=== PATIENT | male | born 1965 ===

== ENCOUNTER 2016-08-31 08:59 | Inpatient (IN) | payer BC, MEDICAID, OTHER ==
[2016-08-31 08:59] VITALS: BMI 33.3
[2016-08-31 10:07] LABS: EOS # 0.1 K/uL (0.0-0.7); EOS % 1.9 % (0.0-4.0); HEMATOCRIT 45.6 % (35.0-51.0); LYMPH # 1.2 K/uL (1.0-4.3); LYMPH % 23.9 % (20.0-40.0); MEAN CELL VOLUME 88.9 fL (80.0-94.0); MEAN CORPUSCULAR HGB CONC 33.8 g/dL (33.0-37.0); MEAN PLATELET VOLUME 8.6 fL (7.2-11.7); MONO # 0.5 K/uL (0.0-0.8); MONO % 10.4 % (0.0-10.0); RED CELL DISTRIBUTION WIDTH 13.7 % (11.5-14.5); WHITE BLOOD COUNT 4.8 K/uL (4.8-10.8)
[2016-08-31 10:12] LABS: CHLORIDE 101 mmol/L (98-107); SODIUM 137 mmol/L (132-148)
[2016-08-31 10:13] LABS: POTASSIUM 3.6 mmol/L (3.6-5.2)
[2016-08-31 10:14] LABS: GFR AFRICAN-AMERICAN > 60
[2016-08-31 10:15] LABS: ALB/GLOB RATIO 1.5 (1.0-2.1); ALKALINE PHOSPHATASE 82 U/L (38-126); ALT/SGPT 47 U/L (21-72); AST/SGOT 35 U/L (17-59); BILIRUBIN,TOTAL 0.6 mg/dL (0.2-1.3); BLOOD UREA NITROGEN 14 mg/dL (9-20); CALCIUM 9.3 mg/dl (8.6-10.4); CARBON DIOXIDE 27 mmol/L (22-30); GLUCOSE,RANDOM 118 mg/dL (75-110); TOTAL PROTEIN 7.9 g/dL (6.3-8.3)
[2016-08-31 10:16] LABS: ALCOHOL SERUM < 10 mg/dl (0-10)
[2016-08-31 10:26] LABS: RBC URINE 2 /hpf (0-3); URINE BILIRUBIN NEGATIVE (NEGATIVE); URINE BLOOD NEGATIVE (NEGATIVE); URINE COLOR Yellow (YELLOW); URINE GLUCOSE (UA) NORMAL (Normal); URINE KETONE TRACE mg/dL (NEGATIVE); URINE LEUKOCYTE ESTERASE NEG Leu/uL (Negative); URINE PROTEIN 1+ mg/dL (NEGATIVE); URINE UROBILINOGEN NORMAL mg/dL (0.2-1.0); WBC URINE 2 /hpf (0-5)
--- NOTE | 2016-08-31 11:55 | C.PDOC ---
History Of Present Illness 51 yr old with PMHx of depression with no follow up, presents to the ER stating for the past several days he has been feeling increasingly depressed with suicidal thoughts, but no plan in mind. Patient denies hallucinations, drug use , nausea, vomiting, headache, weakness or numbness. Time Seen by Provider: 08/31/16 09:37 Chief Complaint (Nursing): Psychiatric Evaluation History Per: Patient History/Exam Limitations: no limitations Onset/Duration Of Symptoms: Worse Since (Several days ) Past Medical History Reviewed: Historical Data, Nursing Documentation, Vital Signs Vital Signs: Last Vital Signs Temp 98.2 F 08/31/16 12:18 Pulse 66 08/31/16 16:06 Resp 16 08/31/16 13:00 BP 119/71 08/31/16 16:06 Pulse Ox 95 08/31/16 12:18 - Medical History PMH: Anxiety, Asthma, Bronchitis, COPD, Depression, Gastritis - [facility] Procedures APPLICATION OF SPLINT (07/21/14) INJECT/INFUSE NEC (09/26/13) NEBULIZER THERAPY (08/05/14) Family History: States: Diabetes - Social History Hx Alcohol Use: No Hx Substance Use: Yes (cocaine) - Immunization History Hx Tetanus Toxoid Vaccination: No Hx Influenza Vaccination: No Hx Pneumococcal Vaccination: No Review Of Systems Except As Marked, All Systems Reviewed And Found Negative. Gastrointestinal: Negative for: Nausea, Vomiting Neurological: Negative for: Weakness, Numbness, Headache Psych: Positive for: Depression, Suicidal ideation Physical Exam - Physical Exam Appears: Well, Non-toxic, No Acute Distress Skin: Warm, Dry, No Rash Head: Atraumatic, Normacephalic Eye(s): bilateral: Normal Inspection, PERRL, EOMI Chest: Symmetrical, No Tenderness Cardiovascular: Rhythm Regular, No Murmur Respiratory: Normal Breath Sounds, No Rales, No Rhonchi, No Wheezing Extremity: Normal ROM, No Swelling Neurological/Psych: Oriented x3, Normal Speech, Normal Motor ED Course And Treatment - Laboratory Results Result Diagrams: 08/31/16 09:56 08/31/16 09:56 O2 Sat by Pulse Oximetry: 100 Progress Note: Patient was seen and evaluated by the Crisis member. Patient is medically cleared. Medical Decision Making Medical Decision Making: PLAN: * Alcohol Serum * Drug Screen * CBC * Urinalysis * Admit to hospital Disposition - Disposition Disposition: HOSPITALIZED Disposition Time: 11:56 Condition: STABLE - Clinical Impression Clinical Impression: Depression - PA / RECRUITMENT DIRECTOR / Resident Statement MD/DO has reviewed & agrees with the documentation as recorded. - Scribe Statement The provider has reviewed the documentation as recorded by the Scribe Afua Colmenares All medical record entries made by the Scribe were at my direction and personally dictated by me. I have reviewed the chart and agree that the record accurately reflects my personal performance of the history, physical exam, medical decision making, and the department course for this patient. I have also personally directed, reviewed, and agree with the discharge instructions and disposition.
--- NOTE | 2016-08-31 11:56 | C.PDOC ---
Time Seen by Provider: 08/31/16 09:37 Chief Complaint (Nursing): Psychiatric Evaluation Past Medical History Vital Signs: Last Vital Signs Temp 98.2 F 08/31/16 10:53 Pulse 71 08/31/16 10:53 Resp 17 08/31/16 10:53 BP 136/83 08/31/16 10:53 Pulse Ox 100 08/31/16 10:53 - Medical History PMH: Anxiety, Asthma, Bronchitis, COPD, Depression, Gastritis Denies: Diabetes, Hepatitis, HIV, HTN, Chronic Kidney Disease, Seizures, Sexually Transmitted Disease - [facility] Procedures APPLICATION OF SPLINT (07/21/14) INJECT/INFUSE NEC (09/26/13) NEBULIZER THERAPY (08/05/14) Family History: States: Diabetes - Social History Hx Alcohol Use: No Hx Substance Use: Yes (cocaine) - Immunization History Hx Tetanus Toxoid Vaccination: No Hx Influenza Vaccination: No Hx Pneumococcal Vaccination: No ED Course And Treatment - Laboratory Results Result Diagrams: 08/31/16 09:56 08/31/16 09:56 O2 Sat by Pulse Oximetry: 100 Disposition - Disposition Disposition: HOSPITALIZED Disposition Time: 11:56 Condition: STABLE - Clinical Impression Clinical Impression: Depression
--- NOTE | 2016-08-31 12:57 | PCM.PSYCH ---
Initial Psychiatric Evaluation - Initial Psychiatric Evaluation Type of Admission: Voluntary Legal Status: Capacity Chief Complaint (in patient's own words): I'm feeling suicidal History of Present Illness and Precipitating Events: Patient was seen and evaluated, chart reviewed and discussed with the nurse. The patient is a 51yo male who presents with depression. 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 He states that he has attempted suicide once by overdosing on sleeping pills. He denies having a psychiatrist and has been hospitalized for psych about 7 times in the past. He states that the last time he was hospitalized he was given Lexapro and continued to take it for about 1 week after discharge. He says that he has difficulty sleeping at night, doesn't eat much, and has lost interest in daily activities. He says that he started using cocaine when he was 28yo and snorted 2-3 bags every other week. He says that he last used cocaine couple of days ago. He has a history of heavy drinking in the past but today remained guarded about the usage and details. He denies ever having been to detox but states that he went to the [facility] in 2000. He denies the use of heroin, marijuana or tobacco. He denies auditory or visual hallucinations. The patient appears to be tired with a depressed mood but is kempt. He reports feelings of hopelessness and helplessness. He is isolated and withdrawn and confined to his room. PMH Asthma, Allergic to seafood and shellfish. Past Psychiatric History - Past Psychiatric History Previous Treatment History: Inpatient Pertinent Medical Hx (Current Medical&Sleep Prob, Allergies): Allergies Allergy/AdvReac Type Severity Reaction Status Date / Time FISH Allergy ANAPHYLAXIS Verified 08/15/16 01:11 Fish Containing Products Allergy ANAPHYLAXIS Verified 08/15/16 01:11 shellfish derived Allergy ANAPHYLAXIS Verified 08/15/16 01:11 seafood Allergy ANAPHYLAXIS Uncoded 08/15/16 05:41 Albuterol HFA [Ventolin HFA 90 mcg/actuation (8 g)] 1 puff IH QID PRN #60 inhaler 08/27/16 predniSONE [Prednisone] 20 mg PO DAILY 4 Days 08/27/16 Review of Systems - Review of Systems All systems: reviewed and no additional remarkable complaints except - Psychiatric Psychiatric: Anhedonia, Change in Appetite, Depression, Suicidal Ideation. absent: Anxiety, Auditory Hallucinations, Homicidal Ideation Mental Status Examination - Personal Presentation Personal Presentation: Looks stated age - Affect Affect: Constricted, Depressed - Motor Activity Motor Activity: Psychomotor Agitation - Reliability in Providing Information Reliability in Providing Information: Fair - Speech Speech: Organized - Mood Mood: Depressed, Anxious - Formal Thought Process Formal Thought Process: No Impairment - Obsessions/Compulsions Obsessions: No Compulsions: No - Cognitive Functions Orientation: Person, Place, Situation, Time Sensorium: Alert Attention/Concentration: Attentive Abstract Thinking: [place] Estimate of Intelligence: Below average Judgement: Imparied, as evidence by: Poor judgement, Imparied, as evidence by: Lack of insight into illness - Risk Risk: Suicidal, Diminished functioning - Limitations Limitations: Living alone DSM 5 DX - DSM 5 DSM 5 Diagnosis: Major depressive disorder recurrent severe without psychotic features Cocaine use disorder severe Alcohol use disorder severe - Recommended/Plan of Treatment Treatment Recommendations and Plan of Treatment: Major depressive disorder recurrent severe without psychotic features CBT Psychoeducation Supportive therapy, group therapy, individual therapy Neurontin 100 mg by mouth 3 times a day Trazodone 50 mg by mouth daily at bedtime Cocaine use disorder severe CBT Psychoeducation Supportive therapy, individual therapy Use [place] for abstinence Alcohol use disorder severe CBT Psychoeducation Supportive therapy, individual therapy Use [place] for abstinence Asthma Monitor signs and symptoms - Smoking Cessation Smoking Cessation Initiated: No
--- NOTE | 2016-09-01 15:00 | PCM.PYCHPN ---
Psychiatric Progress Note - Psychiatric Progress Note Patient seen today, length of contact: 17 min Patient Chief Complaint: I'm feeling suicidal Medication Change: Yes (start Paxil) Medical Record Reviewed: Yes Mental Status Examination - Cognitive Function Orientation: Person, Place, Situation, Time - Mood Mood: Depressed, Anxious - Affect Affect: Constricted, Depressed - Formal Thought Process Formal Thought Process: No Impairment - Homicidal Ideation Homicidal Ideation: No Goal/Treatment Plan - Goal/Treatment Plan Progress Toward Problem(s) and Goals/Treatment Plan: Major depressive disorder recurrent severe without psychotic features CBT Psychoeducation Supportive therapy, group therapy, individual therapy Neurontin 100 mg by mouth 3 times a day Trazodone 50 mg by mouth daily at bedtime Cocaine use disorder severe CBT Psychoeducation Supportive therapy, individual therapy Use [place] for abstinence Alcohol use disorder severe CBT Psychoeducation Supportive therapy, individual therapy Use [place] for abstinence Asthma Monitor signs and symptoms
[2016-09-01] MEDS: Albuterol HFA 90 mcg/actuation (8 g) INH PRN ×2 (18:08→21:25)
[2016-09-02] MEDS: Albuterol HFA 90 mcg/actuation (8 g) INH PRN ×3 (06:06→14:07)
--- NOTE | 2016-09-02 10:12 | PCM.PYCHPN ---
Psychiatric Progress Note - Psychiatric Progress Note Patient seen today, length of contact: 17 min Patient Chief Complaint: I'm feeling suicidal Medication Change: Yes (increase gabapentin, consult medicine ) Medical Record Reviewed: Yes Mental Status Examination - Cognitive Function Orientation: Person, Place, Situation, Time - Mood Mood: Depressed, Anxious - Affect Affect: Constricted, Depressed - Formal Thought Process Formal Thought Process: No Impairment - Homicidal Ideation Homicidal Ideation: No Goal/Treatment Plan - Goal/Treatment Plan Progress Toward Problem(s) and Goals/Treatment Plan: Major depressive disorder recurrent severe without psychotic features CBT Psychoeducation Supportive therapy, group therapy, individual therapy Neurontin 100 mg by mouth 3 times a day Trazodone 50 mg by mouth daily at bedtime Cocaine use disorder severe CBT Psychoeducation Supportive therapy, individual therapy Use [place] for abstinence Alcohol use disorder severe CBT Psychoeducation Supportive therapy, individual therapy Use [place] for abstinence Asthma Monitor signs and symptoms
--- NOTE | 2016-09-02 13:46 | CP.PCM.CON ---
<Alfonso Jimenez - Last Filed: 09/02/16 19:42> History of Present Illness - History of Present Illness History of Present Illness: CC: Short of breath HPI: Patient is a 51 year old male with a history of asthma and COPD, cocaine use disorder, depression, and etoh abuse as well. He says that he has been having productive cough for the past few days and also some chest tightness as well as chills last night. A consult was for the asthma and also possible pnuemonia. He says that he has been hospitalized for asthma exerbation but has never been intubated or in ICU because of it. He currently denies fevers, fatigue, loss of appetite, nausea, vomiting, diarrhea, constipation, joint pain, or inflammation. PMH: see above PSH: denies FH: COPD mom's side and dad's side SH: Homless, smokes every other day 1-2 cigarettes, history of etoh abuse, cocaine abuse Review of Systems - Review of Systems All systems: reviewed and no additional remarkable complaints except - Constitutional Constitutional: Chills. absent: Fatigue, Fever, Lethargy, Night Sweats - EENT Eyes: absent: Change in Vision Ears: absent: Dizziness Nose/Mouth/Throat: absent: Nasal Trauma, Post Nasal Drip - Cardiovascular Cardiovascular: absent: Chest Pain, Dyspnea - Respiratory Respiratory: Cough, Wheezing. absent: Dyspnea - Gastrointestinal Gastrointestinal: absent: Abdominal Pain, Diarrhea, Nausea, Vomiting - Musculoskeletal Musculoskeletal: absent: Numbness, Tingling - Integumentary Integumentary: Dry Skin, Pruritus (feet) - Neurological Neurological: absent: Disequilibrium, Numbness, Tingling, Weakness - Endocrine Endocrine: absent: Fatigue, Palpitations Past Patient History - Infectious Disease Hx of Infectious Diseases: None - Past Medical History & Family History Past Medical History?: Yes - Past Social History Smoking Status: Current Some Days Smoker - CARDIAC Hx Hypertension: No - PULMONARY Hx Asthma: Yes Hx Bronchitis: Yes Hx Chronic Obstructive Pulmonary Disease (COPD): Yes - NEUROLOGICAL Hx Seizures: No - HEENT Hx HEENT Problems: No - RENAL Hx Chronic Kidney Disease: No - ENDOCRINE/METABOLIC Hx Endocrine Disorders: No - HEMATOLOGICAL/ONCOLOGICAL Hx Human Immunodeficiency Virus (HIV): No - INTEGUMENTARY Hx Dermatological Problems: No - MUSCULOSKELETAL/RHEUMATOLOGICAL Hx Musculoskeletal Disorders: No Hx Falls: No - GASTROINTESTINAL Hx Gastritis: Yes - GENITOURINARY/GYNECOLOGICAL Hx Sexually Transmitted Disorders: No - PSYCHIATRIC Hx Substance Use: Yes - SURGICAL HISTORY Hx Surgeries: No - ANESTHESIA Hx Anesthesia: No Meds Allergies/Adverse Reactions: Allergies Allergy/AdvReac Type Severity Reaction Status Date / Time FISH Allergy ANAPHYLAXIS Verified 08/15/16 01:11 Fish Containing Products Allergy ANAPHYLAXIS Verified 08/15/16 01:11 shellfish derived Allergy ANAPHYLAXIS Verified 08/15/16 01:11 seafood Allergy ANAPHYLAXIS Uncoded 08/15/16 05:41 - Medications Medications: Current Medications Albuterol (Ventolin Hfa 90 Mcg/Actuation (8 G)) 1 puff INH RQ4 PRN PRN Reason: Shortness of Breath Last Admin: 09/02/16 09:32 Dose: 1 puff Benztropine Mesylate (Cogentin) 2 mg PO Q6 PRN PRN Reason: Extra Pyramidal Symptoms Dicyclomine HCl (Bentyl) 10 mg PO Q6 PRN PRN Reason: Muscle spasm Diphenhydramine HCl (Benadryl) 50 mg PO Q6 PRN PRN Reason: Extra Pyramidal Symptoms Gabapentin (Neurontin) 300 mg PO TID [facility] Haloperidol (Haldol) 5 mg PO Q8 PRN PRN Reason: Moderate Agitation Haloperidol Lactate (Haldol) 5 mg IM Q8 PRN PRN Reason: Moderate Agitation Hydroxyzine HCl (Atarax) 25 mg PO Q6 PRN PRN Reason: Anxiety Paroxetine HCl (Paxil) 10 mg PO [facility] Last Admin: 09/02/16 09:30 Dose: 10 mg Pneumococcal Polyvalent Vaccine (Pneumovax 23 Vaccine) 0.5 ml IM .ONCE ONE Stop: 09/03/16 10:01 Trazodone HCl (Desyrel) 50 mg PO [facility] Last Admin: 09/01/16 21:25 Dose: 50 mg Physical Exam - Constitutional Appears: Non-toxic, No Acute Distress - Head Exam Head Exam: NORMAL INSPECTION - Eye Exam Eye Exam: Normal appearance, PERRL Pupil Exam: NORMAL ACCOMODATION - ENT Exam ENT Exam: Normal Exam - Respiratory Exam Respiratory Exam: Rhonchi, Wheezes. absent: Rales - Cardiovascular Exam Cardiovascular Exam: REGULAR RHYTHM, RRR, +S1, +S2. absent: Gallop, Rubs - GI/Abdominal Exam GI & Abdominal Exam: Normal Bowel Sounds, Soft. absent: Guarding, Rebound, Tenderness - Extremities Exam Extremities exam: Positive for: normal inspection. Negative for: calf tenderness, pedal edema - Back Exam Back exam: NORMAL INSPECTION. absent: CVA tenderness (L), CVA tenderness (R) - Neurological Exam Neurological exam: Oriented x3 - Psychiatric Exam Psychiatric exam: Normal Affect, Normal Mood - Skin Skin Exam: Intact, Normal Color, Warm Results - Vital Signs Recent Vital Signs: Last Vital Signs Temp 97.5 F L 09/02/16 07:07 Pulse 64 09/02/16 07:07 Resp 18 09/02/16 07:07 BP 133/81 09/02/16 07:07 Pulse Ox 98 09/02/16 07:07 - Labs Result Diagrams: 09/02/16 17:17 09/02/16 17:17 Assessment & Plan (1) Asthma Assessment and Plan: consulted for asthma/COPD He is wheezing with some mild rhonci in all lung lindo Start Duonebs for the next few days, CXR PA and Later, follow up labs cbc cmp, mag, phos for today and tomorrow. Most likely patient does not need transfer to the medical floors, patient is afebrile. Will consider transfer if patient becomes febrile or CXR shows evidence for pneumonia. Duonebs Q6H scheduled Duonebs Q2H PRN for wheezing Status: Acute (2) COPD (chronic obstructive pulmonary disease) Assessment and Plan: see note on Asthma, patient may need further outpatient work up and treatment Status: Chronic Priority: Medium (3) Depression Assessment and Plan: Managment per Psych team. Status: Acute (4) Alcohol abuse Status: Acute (5) Cocaine abuse Status: Chronic Priority: High (6) Prophylactic measure Assessment and Plan: Not indicated at this time. Status: Acute <Marko Sanchez - Last Filed: 09/02/16 22:26> Meds - Medications Medications: Current Medications Albuterol (Ventolin Hfa 90 Mcg/Actuation (8 G)) 1 puff INH RQ4 PRN PRN Reason: Shortness of Breath Last Admin: 09/02/16 14:07 Dose: 1 puff Albuterol/Ipratropium (Duoneb 3 Mg/0.5 Mg (3 Ml) Ud) 3 ml INH RQ6 RADHA Last Admin: 09/02/16 21:08 Dose: Not Given Albuterol/Ipratropium (Duoneb 3 Mg/0.5 Mg (3 Ml) Ud) 3 ml INH RQ2 PRN PRN Reason: Wheezing Benztropine Mesylate (Cogentin) 2 mg PO Q6 PRN PRN Reason: Extra Pyramidal Symptoms Dicyclomine HCl (Bentyl) 10 mg PO Q6 PRN PRN Reason: Muscle spasm Diphenhydramine HCl (Benadryl) 50 mg PO Q6 PRN PRN Reason: Extra Pyramidal Symptoms Gabapentin (Neurontin) 300 mg PO TID [facility] Last Admin: 09/02/16 21:08 Dose: Not Given Haloperidol (Haldol) 5 mg PO Q8 PRN PRN Reason: Moderate Agitation Haloperidol Lactate (Haldol) 5 mg IM Q8 PRN PRN Reason: Moderate Agitation Hydroxyzine HCl (Atarax) 25 mg PO Q6 PRN PRN Reason: Anxiety Paroxetine HCl (Paxil) 10 mg PO QAM [facility] Last Admin: 09/02/16 09:30 Dose: 10 mg Pneumococcal Polyvalent Vaccine (Pneumovax 23 Vaccine) 0.5 ml IM .ONCE ONE Stop: 09/03/16 10:01 Trazodone HCl (Desyrel) 50 mg PO HS [facility] Last Admin: 09/02/16 21:09 Dose: Not Given Vitamin A (Vitamin A & D Oint Ud Foilpak) 0.5 ea TOP Q4 [facility] Last Admin: 09/02/16 21:08 Dose: Not Given Results - Vital Signs Recent Vital Signs: Last Vital Signs Temp 97.5 F L 09/02/16 07:07 Pulse 82 09/02/16 17:24 Resp 18 09/02/16 07:07 BP 113/79 09/02/16 17:24 Pulse Ox 98 09/02/16 07:07 - Labs Result Diagrams: 09/02/16 17:17 09/02/16 17:17 Labs: Laboratory Results - last 24 hr 09/02/16 09/02/16 17:17 17:17 WBC 3.7 L RBC 4.56 Hgb 14.1 Hct 40.8 MCV 89.4 MCH 31.0 MCHC 34.6 RDW 13.2 Plt Count 246 MPV 9.0 Neut % (Auto) 49.5 L Lymph % (Auto) 34.0 Villalba % (Auto) 11.1 H Eos % (Auto) 4.4 H Baso % (Auto) 1.0 Neut # 1.8 Lymph # 1.3 [place] # 0.4 Eos # 0.2 Baso # 0.0 Sodium 135 Potassium 3.7 Chloride 95 L Carbon Dioxide 31 H Anion Gap 13 BUN 16 Creatinine 0.9 Est GFR ( Amer) > 60 Est GFR (Non-Af Amer) > 60 Random Glucose 222 H Calcium 8.9 Total Bilirubin 0.4 AST 24 ALT 41 Alkaline Phosphatase 84 Total Protein 6.4 Albumin 3.6 Globulin 2.8 Albumin/Globulin Ratio 1.3 Assessment & Plan - Date & Time Date: 09/02/16 (i saw and examined this patient and agree with the above assessment and plan as outlined. #. Asthmatic crisis r/o Pneumonia. - Duoneb Q6H scheduled and Q2H PRN SOB. follow CXR, CBC and procalcitonin. zno Antibiotic at present. Marko Sanchez MD) Time: 13:46
[2016-09-02] MEDS ORDERED: Albuterol-Ipratrop 3 mg / 0.5 (3 ml) UD INH STA (15:49)
[2016-09-02] MEDS ORDERED: Albuterol-Ipratrop 3 mg / 0.5 (3 ml) UD INH PRN (15:58)
[2016-09-02 17:47] LABS: EOS # 0.2 K/uL (0.0-0.7); EOS % 4.4 % (0.0-4.0); HEMATOCRIT 40.8 % (35.0-51.0); LYMPH # 1.3 K/uL (1.0-4.3); MEAN CELL VOLUME 89.4 fL (80.0-94.0); MEAN CORPUSCULAR HGB CONC 34.6 g/dL (33.0-37.0); MONO # 0.4 K/uL (0.0-0.8); MONO % 11.1 % (0.0-10.0); NRBC % 0.2 % (0.0-2.0); RED CELL DISTRIBUTION WIDTH 13.2 % (11.5-14.5); WHITE BLOOD COUNT 3.7 K/uL (4.8-10.8)
[2016-09-02 17:54] LABS: CHLORIDE 95 mmol/L (98-107); SODIUM 135 mmol/L (132-148)
[2016-09-02 17:55] LABS: POTASSIUM 3.7 mmol/L (3.6-5.2)
[2016-09-02 17:57] LABS: ALB/GLOB RATIO 1.3 (1.0-2.1); ALKALINE PHOSPHATASE 84 U/L (38-126); ALT/SGPT 41 U/L (21-72); AST/SGOT 24 U/L (17-59); BILIRUBIN,TOTAL 0.4 mg/dL (0.2-1.3); BLOOD UREA NITROGEN 16 mg/dL (9-20); CARBON DIOXIDE 31 mmol/L (22-30); GFR AFRICAN-AMERICAN > 60; GLUCOSE,RANDOM 222 mg/dL (75-110); TOTAL PROTEIN 6.4 g/dL (6.3-8.3)
[2016-09-02 17:58] LABS: CALCIUM 8.9 mg/dl (8.6-10.4)
[2016-09-02] MEDS: Vitamins A & D Oint UD Foilpak TOP SCH ×2 (21:08→22:35)
[2016-09-02] MEDS: Albuterol-Ipratrop 3 mg / 0.5 (3 ml) UD INH SCH (21:08)
[2016-09-03 07:15] VITALS: O2SAT 99
[2016-09-03] MEDS: Albuterol HFA 90 mcg/actuation (8 g) INH PRN ×3 (07:30→20:44)
[2016-09-03 07:57] LABS: BASO % 1.5 % (0.0-2.0); EOS # 0.1 K/uL (0.0-0.7); EOS % 4.7 % (0.0-4.0); HEMATOCRIT 45.1 % (35.0-51.0); LYMPH % 32.7 % (20.0-40.0); MEAN CELL VOLUME 90.5 fL (80.0-94.0); MEAN CORPUSCULAR HEMOGLOBIN 29.8 pg (27.0-31.0); MEAN CORPUSCULAR HGB CONC 32.9 g/dL (33.0-37.0); MEAN PLATELET VOLUME 8.6 fL (7.2-11.7); MONO # 0.4 K/uL (0.0-0.8); MONO % 13.2 % (0.0-10.0); NRBC % 0.1 % (0.0-2.0); RED CELL DISTRIBUTION WIDTH 13.7 % (11.5-14.5); WHITE BLOOD COUNT 3.2 K/uL (4.8-10.8)
[2016-09-03 08:04] LABS: CHLORIDE 105 mmol/L (98-107); POTASSIUM 4.5 mmol/L (3.6-5.2); SODIUM 140 mmol/L (132-148)
[2016-09-03 08:06] LABS: GFR AFRICAN-AMERICAN > 60
[2016-09-03 08:07] LABS: ALB/GLOB RATIO 1.2 (1.0-2.1); ALKALINE PHOSPHATASE 76 U/L (38-126); ALT/SGPT 37 U/L (21-72); AST/SGOT 26 U/L (17-59); BILIRUBIN,TOTAL 0.4 mg/dL (0.2-1.3); BLOOD UREA NITROGEN 13 mg/dL (9-20); CALCIUM 9.2 mg/dl (8.6-10.4); CARBON DIOXIDE 27 mmol/L (22-30); GLUCOSE,RANDOM 192 mg/dL (75-110); TOTAL PROTEIN 6.9 g/dL (6.3-8.3)
[2016-09-03] MEDS: Vitamins A & D Oint UD Foilpak TOP SCH ×4 (08:35→21:27)
[2016-09-03] MEDS: Albuterol-Ipratrop 3 mg / 0.5 (3 ml) UD INH SCH ×3 (08:57→20:19)
[2016-09-03] MEDS ORDERED: Pneumococcal 23-Valent Vaccine IM ONE (10:00)
--- NOTE | 2016-09-03 12:37 | PCM.PYCHPN ---
Psychiatric Progress Note - Psychiatric Progress Note Patient seen today, length of contact: 17 min Patient Chief Complaint: I'm feeling suicidal Medication Change: Yes (increase trazodone) Medical Record Reviewed: Yes Mental Status Examination - Cognitive Function Orientation: Person, Place, Situation, Time - Mood Mood: Depressed, Anxious - Affect Affect: Constricted, Depressed - Formal Thought Process Formal Thought Process: No Impairment - Homicidal Ideation Homicidal Ideation: No Goal/Treatment Plan - Goal/Treatment Plan Need for Continued Stay: Discharge may exacerbated symptoms, Severe functional impairment Progress Toward Problem(s) and Goals/Treatment Plan: Major depressive disorder recurrent severe without psychotic features CBT Psychoeducation Supportive therapy, group therapy, individual therapy Neurontin 300 mg by mouth 3 times a day Trazodone 100 mg by mouth daily at bedtime Paxil 10 mg po Daily Cocaine use disorder severe CBT Psychoeducation Supportive therapy, individual therapy Use [place] for abstinence Alcohol use disorder severe CBT Psychoeducation Supportive therapy, individual therapy Use [place] for abstinence Asthma Monitor signs and symptoms
[2016-09-03 17:01] LABS: PHOSPHOROUS 3.2 mg/dL (2.5-4.5)
[2016-09-03 17:02] LABS: MAGNESIUM 2.1 mg/dL (1.6-2.3)
--- NOTE | 2016-09-03 18:07 | CP.PCM.PN ---
Subjective - Date & Time of Evaluation Date of Evaluation: 09/03/16 Time of Evaluation: 18:03 - Subjective Subjective: PGY-1 note for hospitalist service Pt seen and examined at bedside. No overnight events. Pt got breathing treatment in the AM and states that it helps. He admits to still feeling tight. Denies any fevers, chills, chest pain, nausea or vomiting. Admits to cough as well, but this is chronic Objective - Vital Signs/Intake and Output Vital Signs (last 24 hours): Temp Pulse Resp BP Pulse Ox 97.4 F L 60 16 102/64 99 09/03/16 07:14 09/03/16 07:14 09/03/16 07:14 09/03/16 07:14 09/03/16 07:14 - Medications Medications: Current Medications Albuterol (Ventolin Hfa 90 Mcg/Actuation (8 G)) 1 puff INH RQ4 PRN PRN Reason: Shortness of Breath Last Admin: 09/03/16 13:05 Dose: 1 puff Albuterol/Ipratropium (Duoneb 3 Mg/0.5 Mg (3 Ml) Ud) 3 ml INH RQ2 PRN PRN Reason: Wheezing Albuterol/Ipratropium (Duoneb 3 Mg/0.5 Mg (3 Ml) Ud) 3 ml INH RQ4 RADHA Last Admin: 09/03/16 15:30 Dose: 3 ml Benztropine Mesylate (Cogentin) 2 mg PO Q6 PRN PRN Reason: Extra Pyramidal Symptoms Dicyclomine HCl (Bentyl) 10 mg PO Q6 PRN PRN Reason: Muscle spasm Diphenhydramine HCl (Benadryl) 50 mg PO Q6 PRN PRN Reason: Extra Pyramidal Symptoms Gabapentin (Neurontin) 300 mg PO TID [facility] Last Admin: 09/03/16 13:05 Dose: 300 mg Haloperidol (Haldol) 5 mg PO Q8 PRN PRN Reason: Moderate Agitation Haloperidol Lactate (Haldol) 5 mg IM Q8 PRN PRN Reason: Moderate Agitation Hydroxyzine HCl (Atarax) 25 mg PO Q6 PRN PRN Reason: Anxiety Paroxetine HCl (Paxil) 10 mg PO QAM [facility] Last Admin: 09/03/16 09:20 Dose: 10 mg Prednisone (Prednisone Tab) 60 mg PO DAILY [facility] Last Admin: 09/03/16 16:00 Dose: 60 mg Trazodone HCl (Desyrel) 50 mg PO HS [facility] Last Admin: 09/02/16 22:35 Dose: 50 mg Vitamin A (Vitamin A & D Oint Ud Foilpak) 0.5 ea TOP Q4 [facility] Last Admin: 09/03/16 16:02 Dose: Not Given - Labs Labs: 09/03/16 07:40 09/03/16 07:40 - Constitutional Appears: Non-toxic, No Acute Distress - Head Exam Head Exam: ATRAUMATIC, NORMOCEPHALIC - Respiratory Exam Respiratory Exam: Rhonchi, Wheezes (diffuse), NORMAL BREATHING PATTERN - Cardiovascular Exam Cardiovascular Exam: +S1, +S2 - GI/Abdominal Exam GI & Abdominal Exam: Soft, Normal Bowel Sounds - Neurological Exam Neurological Exam: Alert, Awake - Skin Skin Exam: Dry, Warm Assessment and Plan - Assessment and Plan (Free Text) Assessment: Asthma - wheezing with some mild rhonci in all lung lindo - Increased duoneb frequency to q4h - Added prednisone 60mg daily - Waiting on CXR - f/u COPD (chronic obstructive pulmonary disease) - see note on Asthma, patient may need further outpatient work up and treatment Depression - Managment per Psych team.
[2016-09-04] MEDS: Albuterol-Ipratrop 3 mg / 0.5 (3 ml) UD INH SCH ×7 (00:28→20:28)
[2016-09-04] MEDS: Albuterol HFA 90 mcg/actuation (8 g) INH PRN ×2 (01:24→13:32)
[2016-09-04] MEDS: Vitamins A & D Oint UD Foilpak TOP SCH ×7 (02:58→22:36)
[2016-09-04 09:06] VITALS: RESP 18; TEMP 97.6
--- NOTE | 2016-09-04 09:48 | CP.PCM.PN ---
Subjective - Date & Time of Evaluation Date of Evaluation: 09/04/16 Time of Evaluation: 09:41 - Subjective Subjective: PGY-[address] Kang's service: Pt seen and examined at bedside. No acute overnight events. Pt got breathing treatment in the AM and states that it helps. He admits to still feeling tight. We are awaiting Chest Xray results. Pt admits continued wheezing, but denies any fevers, chills, chest pain, nausea or vomiting. Objective - Vital Signs/Intake and Output Vital Signs (last 24 hours): Temp Pulse Resp BP Pulse Ox 97.6 F 85 18 158/79 H 99 09/04/16 09:05 09/04/16 09:05 09/04/16 09:05 09/04/16 09:05 09/03/16 07:14 - Medications Medications: Current Medications Albuterol (Ventolin Hfa 90 Mcg/Actuation (8 G)) 1 puff INH RQ4 PRN PRN Reason: Shortness of Breath Last Admin: 09/04/16 01:24 Dose: 1 puff Albuterol/Ipratropium (Duoneb 3 Mg/0.5 Mg (3 Ml) Ud) 3 ml INH RQ2 PRN PRN Reason: Wheezing Albuterol/Ipratropium (Duoneb 3 Mg/0.5 Mg (3 Ml) Ud) 3 ml INH RQ4 RADHA Last Admin: 09/04/16 04:00 Dose: Not Given Benztropine Mesylate (Cogentin) 2 mg PO Q6 PRN PRN Reason: Extra Pyramidal Symptoms Dicyclomine HCl (Bentyl) 10 mg PO Q6 PRN PRN Reason: Muscle spasm Diphenhydramine HCl (Benadryl) 50 mg PO Q6 PRN PRN Reason: Extra Pyramidal Symptoms Gabapentin (Neurontin) 300 mg PO TID [facility] Last Admin: 09/03/16 18:09 Dose: Not Given Haloperidol (Haldol) 5 mg PO Q8 PRN PRN Reason: Moderate Agitation Haloperidol Lactate (Haldol) 5 mg IM Q8 PRN PRN Reason: Moderate Agitation Hydroxyzine HCl (Atarax) 25 mg PO Q6 PRN PRN Reason: Anxiety Insulin Human Regular (Novolin R) 0 unit SC ACHS RADHA PRN Reason: Protocol Paroxetine HCl (Paxil) 10 mg PO QAM [facility] Last Admin: 09/03/16 09:20 Dose: 10 mg Prednisone (Prednisone Tab) 60 mg PO DAILY [facility] Last Admin: 09/03/16 16:00 Dose: 60 mg Trazodone HCl (Desyrel) 50 mg PO HS [facility] Last Admin: 09/03/16 21:27 Dose: 50 mg Vitamin A (Vitamin A & D Oint Ud Foilpak) 0.5 ea TOP Q4 [facility] Last Admin: 09/04/16 03:00 Dose: 0.5 ea - Labs Labs: 09/03/16 07:40 09/03/16 07:40 - Constitutional Appears: Non-toxic, No Acute Distress - Head Exam Head Exam: ATRAUMATIC, NORMOCEPHALIC - Eye Exam Eye Exam: EOMI Pupil Exam: PERRL - ENT Exam ENT Exam: Mucous Membranes Moist - Respiratory Exam Respiratory Exam: Wheezes, NORMAL BREATHING PATTERN Additional comments: can speak in full sentences - Cardiovascular Exam Cardiovascular Exam: REGULAR RHYTHM, +S1, +S2 - GI/Abdominal Exam GI & Abdominal Exam: Soft, Normal Bowel Sounds. absent: Tenderness - Extremities Exam Extremities Exam: Normal Inspection. absent: Pedal Edema - Neurological Exam Neurological Exam: Alert, Awake, Oriented x3 - Psychiatric Exam Psychiatric exam: Normal Affect, Normal Mood - Skin Skin Exam: Normal Color, Warm Assessment and Plan - Assessment and Plan (Free Text) Plan: Asthma - wheezing continues, mild rhonci in all lung lindo - Continue duoneb frequency q4h, PRN Q2H - Continue prednisone 60mg daily - CXR (09/04/16) NAD (see full report) COPD (chronic obstructive pulmonary disease) - see note on Asthma, patient may need further outpatient work up and treatment T2DM Hgb A1C 7.4 Accuchecks Start Metformin 500mg PO BID Depression - Management per Psych team DW Dr. Jorge Luis Hernandez, PGY-1
[2016-09-04] MEDS ORDERED: (Novolin R) Insulin Human Regular 100 units/ml vial SC SCH (11:30)
--- NOTE | 2016-09-04 13:05 | PCM.PYCHPN ---
Psychiatric Progress Note - Psychiatric Progress Note Patient seen today, length of contact: 17 min Patient Chief Complaint: I'm feeling suicidal Medication Change: Yes (increase paxil) Medical Record Reviewed: Yes Mental Status Examination - Cognitive Function Orientation: Person, Place, Situation, Time - Mood Mood: Depressed, Anxious - Affect Affect: Constricted, Depressed - Formal Thought Process Formal Thought Process: No Impairment - Homicidal Ideation Homicidal Ideation: No Goal/Treatment Plan - Goal/Treatment Plan Need for Continued Stay: Discharge may exacerbated symptoms, Severe functional impairment Progress Toward Problem(s) and Goals/Treatment Plan: Major depressive disorder recurrent severe without psychotic features CBT Psychoeducation Supportive therapy, group therapy, individual therapy Neurontin 300 mg by mouth 3 times a day Trazodone 100 mg by mouth daily at bedtime Paxil 20 mg PO Daily Cocaine use disorder severe CBT Psychoeducation Supportive therapy, individual therapy Use CO for abstinence Alcohol use disorder severe CBT Psychoeducation Supportive therapy, individual therapy Use CO for abstinence Asthma Monitor signs and symptoms Medicine consulted
--- NOTE | 2016-09-04 13:20 | RAD ---
HISTORY: rule out pneumonia COMPARISON: No prior. TECHNIQUE: Chest PA and lateral FINDINGS: LUNGS: No active pulmonary disease. PLEURA: No significant pleural effusion identified. No pneumothorax apparent. CARDIOVASCULAR: Normal. OSSEOUS STRUCTURES: No significant abnormalities. VISUALIZED UPPER ABDOMEN: Normal. OTHER FINDINGS: None. IMPRESSION: No active disease.
[2016-09-05] MEDS: Albuterol-Ipratrop 3 mg / 0.5 (3 ml) UD INH SCH ×4 (02:36→11:41)
[2016-09-05] MEDS: Vitamins A & D Oint UD Foilpak TOP SCH ×6 (06:29→21:41)
[2016-09-05] MEDS: Albuterol HFA 90 mcg/actuation (8 g) INH PRN ×2 (06:54→17:14)
--- NOTE | 2016-09-05 07:01 | CP.PCM.PN ---
Subjective - Date & Time of Evaluation Date of Evaluation: 09/05/16 Time of Evaluation: 06:59 - Subjective Subjective: PGY-[address] Kang's service: Pt seen and examined at bedside. No acute overnight events per nursing, though they note refusal of duonebs last evening. Patient still is complaining of wheezing and sob over night. He received breathing treatment in the morning and states that he felt better. He is also still complaining of a productive cough with minimal white phlegm. He denied chest pain, palpitations, n/v, d/c, changes in urination, fever or chills Objective - Vital Signs/Intake and Output Vital Signs (last 24 hours): Temp Pulse Resp BP Pulse Ox 97.6 F 83 18 131/79 99 09/04/16 09:05 09/04/16 15:48 09/04/16 09:05 09/04/16 15:48 09/03/16 07:14 - Medications Medications: Current Medications Albuterol (Ventolin Hfa 90 Mcg/Actuation (8 G)) 1 puff INH RQ4 PRN PRN Reason: Shortness of Breath Last Admin: 09/05/16 06:54 Dose: 1 puff Albuterol/Ipratropium (Duoneb 3 Mg/0.5 Mg (3 Ml) Ud) 3 ml INH RQ2 PRN PRN Reason: Wheezing Albuterol/Ipratropium (Duoneb 3 Mg/0.5 Mg (3 Ml) Ud) 3 ml INH RQ4 RADHA Last Admin: 09/05/16 05:03 Dose: Not Given Benztropine Mesylate (Cogentin) 2 mg PO Q6 PRN PRN Reason: Extra Pyramidal Symptoms Dicyclomine HCl (Bentyl) 10 mg PO Q6 PRN PRN Reason: Muscle spasm Diphenhydramine HCl (Benadryl) 50 mg PO Q6 PRN PRN Reason: Extra Pyramidal Symptoms Gabapentin (Neurontin) 300 mg PO TID [facility] Last Admin: 09/04/16 17:12 Dose: 300 mg Haloperidol (Haldol) 5 mg PO Q8 PRN PRN Reason: Moderate Agitation Haloperidol Lactate (Haldol) 5 mg IM Q8 PRN PRN Reason: Moderate Agitation Hydroxyzine HCl (Atarax) 25 mg PO Q6 PRN PRN Reason: Anxiety Last Admin: 09/04/16 22:35 Dose: 25 mg Ibuprofen (Motrin Tab) 600 mg PO Q6H PRN PRN Reason: Pain, moderate (4-7) Last Admin: 09/04/16 18:58 Dose: 600 mg Metformin HCl (Glucophage) 500 mg PO BIDCC [facility] Last Admin: 09/04/16 17:12 Dose: 500 mg Paroxetine HCl (Paxil) 10 mg PO QAM [facility] Last Admin: 09/04/16 10:54 Dose: 10 mg Prednisone (Prednisone Tab) 60 mg PO DAILY [facility] Last Admin: 09/04/16 10:54 Dose: 60 mg Trazodone HCl (Desyrel) 50 mg PO HS [facility] Last Admin: 09/04/16 22:35 Dose: 50 mg Vitamin A (Vitamin A & D Oint Ud Foilpak) 0.5 ea TOP Q4 [facility] Last Admin: 09/05/16 06:29 Dose: Not Given - Labs Labs: 09/03/16 07:40 09/03/16 07:40 - Additional Findings Additional findings: - Constitutional Appears: Non-toxic, No Acute Distress - Head Exam Head Exam: ATRAUMATIC, NORMOCEPHALIC - Eye Exam Eye Exam: EOMI Pupil Exam: PERRL - ENT Exam ENT Exam: Mucous Membranes Moist - Respiratory Exam Respiratory Exam: wheezing remains (improved from admission), NORMAL BREATHING PATTERN Additional comments: can speak in full sentences, no accessory muscle use - Cardiovascular Exam Cardiovascular Exam: REGULAR RHYTHM, +S1, +S2 - GI/Abdominal Exam GI & Abdominal Exam: Soft, Normal Bowel Sounds. absent: Tenderness - Extremities Exam Extremities Exam: Normal Inspection. absent: Pedal Edema - Neurological Exam Neurological Exam: Alert, Awake, Oriented x3 - Psychiatric Exam Psychiatric exam: Normal Affect, Normal Mood - Skin Skin Exam: Normal Color, Warm Assessment and Plan - Assessment and Plan (Free Text) Plan: Asthma - wheezing improved, but still present - Continue duoneb frequency q4h, PRN Q2H - Continue prednisone 60mg daily - CXR (09/04/16) NAD (see full report) COPD (chronic obstructive pulmonary disease) - see note on Asthma, patient may need further outpatient work up and treatment T2DM Hgb A1C 7.4 Accuchecks - BG > 300, due to steroids Continue Metformin 500mg PO BID Continue ISS-low coverage Hx of drug abuse HIV negative Depression - Management per Psych team DW Dr. Jorge Luis Hernandez, PGY-1
[2016-09-05 07:21] LABS: BASO # 0.1 K/uL (0.0-0.2); BASO % 0.5 % (0.0-2.0); EOS % 0.2 % (0.0-4.0); LYMPH # 1.2 K/uL (1.0-4.3); LYMPH % 9.5 % (20.0-40.0); MEAN CELL VOLUME 90.2 fL (80.0-94.0); MEAN CORPUSCULAR HEMOGLOBIN 29.4 pg (27.0-31.0); MEAN CORPUSCULAR HGB CONC 32.6 g/dL (33.0-37.0); MEAN PLATELET VOLUME 8.7 fL (7.2-11.7); MONO # 0.8 K/uL (0.0-0.8); MONO % 6.6 % (0.0-10.0); PLATELET COUNT 232 K/uL (130-400); RED CELL DISTRIBUTION WIDTH 13.9 % (11.5-14.5); WHITE BLOOD COUNT 12.2 K/uL (4.8-10.8)
[2016-09-05 07:23] LABS: CHLORIDE 100 mmol/L (98-107)
[2016-09-05 07:24] LABS: POTASSIUM 4.4 mmol/L (3.6-5.2); SODIUM 133 mmol/L (132-148)
[2016-09-05 07:26] LABS: BILIRUBIN,TOTAL 0.5 mg/dL (0.2-1.3); GFR AFRICAN-AMERICAN > 60
[2016-09-05 07:27] LABS: ALB/GLOB RATIO 1.4 (1.0-2.1); ALKALINE PHOSPHATASE 85 U/L (38-126); ALT/SGPT 49 U/L (21-72); AST/SGOT 26 U/L (17-59); BLOOD UREA NITROGEN 16 mg/dL (9-20); CALCIUM 9.2 mg/dl (8.6-10.4); CARBON DIOXIDE 22 mmol/L (22-30); GLUCOSE,RANDOM 348 mg/dL (75-110); PHOSPHOROUS 3.5 mg/dL (2.5-4.5); TOTAL PROTEIN 7.1 g/dL (6.3-8.3)
[2016-09-05 10:19] LABS: BASOPHIL 1 % (0-2); EOSINOPHIL 1 % (0-4); NEUTROPHIL 81 % (50-75); TOTAL CELLS COUNTED 100
--- NOTE | 2016-09-05 15:22 | PCM.PYCHPN ---
Psychiatric Progress Note - Psychiatric Progress Note Patient seen today, length of contact: 17 min Patient Chief Complaint: I'm feeling suicidal Medication Change: No Medical Record Reviewed: Yes Mental Status Examination - Cognitive Function Orientation: Person, Place, Situation, Time - Mood Mood: Depressed, Anxious - Affect Affect: Constricted, Depressed - Formal Thought Process Formal Thought Process: No Impairment - Homicidal Ideation Homicidal Ideation: No Goal/Treatment Plan - Goal/Treatment Plan Need for Continued Stay: Discharge may exacerbated symptoms, Severe functional impairment Progress Toward Problem(s) and Goals/Treatment Plan: Major depressive disorder recurrent severe without psychotic features CBT Psychoeducation Supportive therapy, group therapy, individual therapy Neurontin 300 mg by mouth 3 times a day Trazodone 100 mg by mouth daily at bedtime Paxil 20 mg PO Daily Cocaine use disorder severe CBT Psychoeducation Supportive therapy, individual therapy Use OR for abstinence Alcohol use disorder severe CBT Psychoeducation Supportive therapy, individual therapy Use OR for abstinence Asthma Monitor signs and symptoms
[2016-09-05] MEDS ORDERED: (Novolin R) Insulin Human Regular 100 units/ml vial SC SCH (22:00)
[2016-09-06] MEDS: Albuterol-Ipratrop 3 mg / 0.5 (3 ml) UD INH SCH ×3 (04:00→12:25)
[2016-09-06] MEDS: Vitamins A & D Oint UD Foilpak TOP SCH (06:02)
[2016-09-06 07:31] VITALS: BP 124/76; PULSE 71
[2016-09-06 09:21] LABS: BASO # 0.1 K/uL (0.0-0.2); BASO % 0.7 % (0.0-2.0); EOS % 0.4 % (0.0-4.0); HEMATOCRIT 44.4 % (35.0-51.0); LYMPH # 1.2 K/uL (1.0-4.3); LYMPH % 10.3 % (20.0-40.0); MEAN CELL VOLUME 90.4 fL (80.0-94.0); MEAN CORPUSCULAR HEMOGLOBIN 29.6 pg (27.0-31.0); MEAN CORPUSCULAR HGB CONC 32.7 g/dL (33.0-37.0); MEAN PLATELET VOLUME 8.9 fL (7.2-11.7); MONO # 0.6 K/uL (0.0-0.8); MONO % 5.1 % (0.0-10.0); RED CELL DISTRIBUTION WIDTH 13.8 % (11.5-14.5); WHITE BLOOD COUNT 11.4 K/uL (4.8-10.8)
[2016-09-06 09:50] LABS: CHLORIDE 96 mmol/L (98-107); SODIUM 135 mmol/L (132-148)
[2016-09-06 09:52] LABS: ALB/GLOB RATIO 1.4 (1.0-2.1); AST/SGOT 24 U/L (17-59); BILIRUBIN,TOTAL 0.5 mg/dL (0.2-1.3); CARBON DIOXIDE 25 mmol/L (22-30); GFR AFRICAN-AMERICAN > 60; TOTAL PROTEIN 7.4 g/dL (6.3-8.3)
[2016-09-06 09:53] LABS: ALKALINE PHOSPHATASE 105 U/L (38-126); ALT/SGPT 45 U/L (21-72); BLOOD UREA NITROGEN 17 mg/dL (9-20); CALCIUM 9.6 mg/dl (8.6-10.4); GLUCOSE,RANDOM 364 mg/dL (75-110)
--- NOTE | 2016-09-06 10:47 | PCM.PYCHDC ---
Mental Status Examination - Mental Status Examination Orientation: Person, Place, Situation, Time Memory: Intact Mood: Neutral Affect: Constricted Speech: Soft Attention: WNL Concentration: WNL Association: WNL Fund of Knowledge: WNL Formal Thought Process: No Impairment Description of patient's judgement and insight: good, fair Psychotic Thoughts and Behaviors: denies any AVH Suicidal Ideation: No Current Homicidal Ideation?: No Discharge Summary - Discharge Note Reason for Hospitalization: Patient was seen and evaluated, chart reviewed and discussed with the nurse. The patient is a 51yo male who presents with depression. 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 He states that he has attempted suicide once by overdosing on sleeping pills. He denies having a psychiatrist and has been hospitalized for psych about 7 times in the past. He states that the last time he was hospitalized he was given Lexapro and continued to take it for about 1 week after discharge. He says that he has difficulty sleeping at night, doesn't eat much, and has lost interest in daily activities. He says that he started using cocaine when he was 28yo and snorted 2-3 bags every other week. He says that he last used cocaine couple of days ago. He has a history of heavy drinking in the past but today remained guarded about the usage and details. He denies ever having been to detox but states that he went to the [facility] in 2000. He denies the use of heroin, marijuana or tobacco. He denies auditory or visual hallucinations. The patient appears to be tired with a depressed mood but is kempt. He reports feelings of hopelessness and helplessness. He is isolated and withdrawn and confined to his room. Laboratory Data: Abnormal Lab Results 09/05/16 09/05/16 09/05/16 11:34 16:12 21:06 WBC RBC Hgb Hct MCV MCH MCHC RDW Plt Count MPV Neut % (Auto) Lymph % (Auto) [place] % (Auto) Eos % (Auto) Baso % (Auto) Neut # Lymph # [place] # Eos # Baso # Sodium Potassium Chloride Carbon Dioxide Anion Gap BUN Creatinine Est GFR ( Amer) Est GFR (Non-Af Amer) POC Glucose (mg/dL) 327 H 355 H 398 H Random Glucose Calcium Total Bilirubin AST ALT Alkaline Phosphatase Total Protein Albumin Globulin Albumin/Globulin Ratio 09/06/16 09/06/16 09:16 09:16 WBC 11.4 H RBC 4.91 Hgb 14.5 Hct 44.4 MCV 90.4 MCH 29.6 MCHC 32.7 L RDW 13.8 Plt Count 235 MPV 8.9 Neut % (Auto) 83.5 H Lymph % (Auto) 10.3 L [place] % (Auto) 5.1 Eos % (Auto) 0.4 Baso % (Auto) 0.7 Neut # 9.5 H Lymph # 1.2 [place] # 0.6 Eos # 0.0 Baso # 0.1 Sodium 135 Potassium 4.0 Chloride 96 L Carbon Dioxide 25 Anion Gap 18 BUN 17 Creatinine 0.8 Est GFR ( Amer) > 60 Est GFR (Non-Af Amer) > 60 POC Glucose (mg/dL) Random Glucose 364 H Calcium 9.6 Total Bilirubin 0.5 AST 24 ALT 45 Alkaline Phosphatase 105 Total Protein 7.4 Albumin 4.3 Globulin 3.1 Albumin/Globulin Ratio 1.4 Consultations:: List each consultation separately and include: 1. Reason for request. 2. Findings. 3. Follow-up Summary of Hospital Course include:: 1. Description of specific treatment plan utilized for patients during their course of treatmen. 2. Summarize the time- course for resolution of acute symptoms and/or regressed behaviors. 3. Describe issues identified and worked on during hospitalization. 4. Describe medication utilized. 5. Describe medical problems identified and treated. 6. Reassessment of suicide risk Summary of Hospital Course: During the course of his stay, patient (pt) started progressively improving and he no longer remained irritable, depressed, and suicidal. His mood was improved and he started attending groups and meetings and started socializing. Patient denied any feelings of hopelessness, helplessness, and worthlessness, denied any problem with the sleep or appetite, denied suicidal ideation or homicidal ideation. Pt denied any auditory or visual hallucinations. Some changes were made in his current medications and patient was discharged on following medications. He tolerated these medications very well and denied any side effects. - Final Diagnosis (DSM 5) Condition upon Discharge: STABLE DSM 5: Major depressive disorder recurrent severe without psychotic features Cocaine use disorder severe Alcohol use disorder severe Disposition: HOME/ ROUTINE Follow-up Treatment Plan: Education: Pt was educated and counseled about the risks and benefits of taking and not taking medications. Pt was educated and counseled about the risks of drinking and abusing drugs. Pt was educated and counseled to go to the ER or call 911 if pt develop suicidal ideation or homicidal ideation, worsening of symptoms or severe side effects of the meds. Prescriptions/Medication Reconciliation: Albuterol HFA [Ventolin HFA 90 mcg/actuation (8 g)] 1 puff INH RQ4 PRN #1 inhaler PRN Reason: Shortness Of Breath Gabapentin [Neurontin] 300 mg PO TID #90 cap metFORMIN [glucOPHAGE] 500 mg PO BIDCC #60 tab PARoxetine [Paxil] 20 mg PO QAM #30 tab traZODone [Desyrel] 100 mg PO HS #30 tab - Smoking Cessation Smoking Cessation Medication prescribed: No - Antipsychotic Medications Pt discharged on 2 or more routine antipsychotic medications: No
--- NOTE | 2016-09-06 15:01 | CP.PCM.PN ---
Subjective - Date & Time of Evaluation Date of Evaluation: 09/06/16 Time of Evaluation: 14:53 - Subjective Subjective: PGY-[address] Monaco's service: Pt seen and examined at bedside. No acute overnight events per nursing. Patient found walking on the psych floor in no acute distress. He is able to communicate in full sentences, and is not using accessory muscles to breathe. He c/o wheezing, productive cough with white phlegm, but notes that both are greatly improved since admission. He denied chest pain, palpitations, n/v, d/c, changes in urination, fever or chills. Pt clear for discharge per medicine team. He was given prescriptions for inhalers, medrol dose pack, and diabetes testing supplies. He was encouraged to follow up with PMD, or come to [facility] for follow up. Objective - Vital Signs/Intake and Output Vital Signs (last 24 hours): Temp Pulse Resp BP Pulse Ox 97.6 F 71 18 124/76 99 09/05/16 10:37 09/06/16 07:31 09/06/16 07:31 09/06/16 07:31 09/03/16 07:14 - Medications Medications: Current Medications Albuterol (Ventolin Hfa 90 Mcg/Actuation (8 G)) 1 puff INH RQ4 PRN PRN Reason: Shortness of Breath Last Admin: 09/05/16 17:14 Dose: 1 puff Albuterol/Ipratropium (Duoneb 3 Mg/0.5 Mg (3 Ml) Ud) 3 ml INH RQ2 PRN PRN Reason: Wheezing Albuterol/Ipratropium (Duoneb 3 Mg/0.5 Mg (3 Ml) Ud) 3 ml INH RQ4 RADHA Last Admin: 09/06/16 12:25 Dose: Not Given Benztropine Mesylate (Cogentin) 2 mg PO Q6 PRN PRN Reason: Extra Pyramidal Symptoms Dicyclomine HCl (Bentyl) 10 mg PO Q6 PRN PRN Reason: Muscle spasm Diphenhydramine HCl (Benadryl) 50 mg PO Q6 PRN PRN Reason: Extra Pyramidal Symptoms Gabapentin (Neurontin) 300 mg PO TID [facility] Last Admin: 09/06/16 10:30 Dose: 300 mg Haloperidol (Haldol) 5 mg PO Q8 PRN PRN Reason: Moderate Agitation Haloperidol Lactate (Haldol) 5 mg IM Q8 PRN PRN Reason: Moderate Agitation Hydroxyzine HCl (Atarax) 25 mg PO Q6 PRN PRN Reason: Anxiety Last Admin: 09/04/16 22:35 Dose: 25 mg Ibuprofen (Motrin Tab) 600 mg PO Q6H PRN PRN Reason: Pain, moderate (4-7) Last Admin: 09/04/16 18:58 Dose: 600 mg Insulin Human Regular (Novolin R) 0 unit SC ACHS [facility] PRN Reason: Protocol Last Admin: 09/05/16 21:15 Dose: 2 unit Metformin HCl (Glucophage) 500 mg PO BIDCC [facility] Last Admin: 09/06/16 10:30 Dose: 500 mg Paroxetine HCl (Paxil) 20 mg PO QAM [facility] Last Admin: 09/06/16 10:34 Dose: 20 mg Prednisone (Prednisone Tab) 60 mg PO DAILY [facility] Last Admin: 09/06/16 10:31 Dose: 60 mg Trazodone HCl (Desyrel) 100 mg PO HS [facility] Last Admin: 09/05/16 21:15 Dose: 100 mg Vitamin A (Vitamin A & D Oint Ud Foilpak) 0.5 ea TOP Q4 [facility] Last Admin: 09/06/16 06:02 Dose: 0.5 ea - Labs Labs: 09/06/16 09:16 09/06/16 09:16 - Additional Findings Additional findings: - Constitutional Appears: Non-toxic, No Acute Distress - Head Exam Head Exam: ATRAUMATIC, NORMOCEPHALIC - Eye Exam Eye Exam: EOMI Pupil Exam: PERRL - ENT Exam ENT Exam: Mucous Membranes Moist - Respiratory Exam Respiratory Exam: wheezing remains (improved from admission) NORMAL BREATHING PATTERN Additional comments: can speak in full sentences, no accessory muscle use, can walk without issue - Cardiovascular Exam Cardiovascular Exam: REGULAR RHYTHM, +S1, +S2 - GI/Abdominal Exam GI & Abdominal Exam: Soft, Normal Bowel Sounds. absent: Tenderness - Extremities Exam Extremities Exam: Normal Inspection. absent: Pedal Edema - Neurological Exam Neurological Exam: Alert, Awake, Oriented x3 - Psychiatric Exam Psychiatric exam: Normal Affect, Normal Mood - Skin Skin Exam: Normal Color, Warm Assessment and Plan - Assessment and Plan (Free Text) Assessment: Disposition Pt discharged by psych team, and clear for discharge per medicine team. - Pt given prescription for 2 inhalers: Ventolin HFA, and Flovent, as well as for Medrol Dose Pack - He was given instruction how/when to use inhalers, and how to take the dose pack - Pt also given prescription for glucometer, testing strips, lancets - He was instructed to follow up with his PMD, or come to [facility] Asthma - wheezing improved since admission - CXR (09/04/16) NAD (see full report) COPD (chronic obstructive pulmonary disease) - see note on Asthma, patient may need further outpatient work up and treatment T2DM Hgb A1C 7.4 Accuchecks - BG > 300, due to steroids Continue Metformin 500mg PO BID Hx of drug abuse HIV negative Depression - Management per Psych team DW Dr. Jacinda Hernandez, PGY-1
== END 2016-09-06 14:55 | disposition home or self-care (01) | DRG 430 ==
LOC: C.ER 08:59 → C.5E 11:55
PROVIDERS: ADMIT Psychiatry & Neurology Psychiatry; ATTEND Psychiatry & Neurology Psychiatry
PROC: GZ3ZZZZ Medication Management (ICD-10-PCS; principal; 2016-08-31)
PROC: GZHZZZZ Group Psychotherapy (ICD-10-PCS; 2016-08-31)
PROC: GZ56ZZZ Individual Psychotherapy, Supportive (ICD-10-PCS; 2016-08-31)
PROC: HZ99ZZZ Pharmacotherapy for Substance Abuse Treatment, Other Replacement Medication (ICD-10-PCS; 2016-08-31)
PROC: HZ59ZZZ Individual Psychotherapy for Substance Abuse Treatment, Supportive (ICD-10-PCS; 2016-08-31)
DX: F33.2 Major depressive disorder, recurrent severe without psychotic features (principal); F14.10 Cocaine abuse, uncomplicated; F10.10 Alcohol abuse, uncomplicated; J45.909 Unspecified asthma, uncomplicated; F17.210 Nicotine dependence, cigarettes, uncomplicated; Z91.013 Allergy to seafood

== ENCOUNTER 2017-02-20 02:36 | Inpatient (IN) | payer BC, MEDICAID, OTHER ==
--- NOTE | 2017-02-20 03:20 | C.PDOC ---
History Of Present Illness Patient presents to the ED from [facility] with complaints of depression and suicidal ideation. Patent was in the [facility] when symptoms bega. Patient denies suicidal plan, homicidal ideations, or physical complaints. Time Seen by Provider: 02/20/17 03:20 Chief Complaint (Nursing): Psychiatric Evaluation History Per: Patient, Other ([facility] ) History/Exam Limitations: no limitations Onset/Duration Of Symptoms: Hrs Current Symptoms Are (Timing): Still Present Suicide/Self Injury Attempted (Context): None Modifying Factor(s): None Associated Symptoms: Depression, Suicidal Thoughts. denies: Suicidal Plan Involuntary Hold By: None Recent travel outside of the [place]: No Past Medical History Reviewed: Historical Data, Nursing Documentation, Vital Signs Vital Signs: Last Vital Signs Temp 97.8 F 02/20/17 02:51 Pulse 71 02/20/17 02:51 Resp 18 02/20/17 02:51 BP 115/68 02/20/17 02:51 Pulse Ox 95 02/20/17 04:55 - Medical History PMH: Anxiety, Asthma, Bronchitis, COPD, Depression, Diabetes, Fractures (Left foot fracture), Gastritis - [facility] Procedures APPLICATION OF SPLINT (07/21/14) GROUP PSYCHOTHERAPY (08/31/16) INDIV PSYCHOTHERAPY FOR SUBSTANCE ABUSE TREATMENT, SUPPORT (08/31/16) INDIVIDUAL PSYCHOTHERAPY, SUPPORTIVE (08/31/16) INJECT/INFUSE NEC (09/26/13) MEDICATION MANAGEMENT (08/31/16) NEBULIZER THERAPY (08/05/14) PHARMACOTHERAPY FOR SUBSTANCE ABUSE, OTH REPLACE MED (08/31/16) Family History: States: Diabetes - Social History Hx Alcohol Use: Yes (Hx ETOH abuse) Hx Substance Use: Yes (last use 02/19) - Immunization History Hx Tetanus Toxoid Vaccination: No Hx Influenza Vaccination: No Hx Pneumococcal Vaccination: No Review Of Systems Constitutional: Negative for: Fever, Chills Gastrointestinal: Negative for: Nausea, Vomiting Psych: Positive for: Depression, Suicidal ideation Physical Exam - Physical Exam Appears: Non-toxic, No Acute Distress Skin: Warm, Dry, No Rash Head: Atraumatic, Normacephalic, No Tenderness Eye(s): bilateral: Normal Inspection, PERRL, EOMI Oral Mucosa: Moist Neck: Supple Chest: Symmetrical, No Deformity Cardiovascular: Rhythm Regular, No Murmur Respiratory: No Rales, No Rhonchi, No Wheezing, Other (clear to auscultation bilaterally ) Gastrointestinal/Abdominal: Soft, No Tenderness, No Distention, No Guarding, No Rebound Extremity: Normal ROM, No Tenderness Neurological/Psych: Oriented x3 ED Course And Treatment - Laboratory Results Result Diagrams: 02/20/17 03:26 02/20/17 03:26 O2 Sat by Pulse Oximetry: 95 (RA) Pulse Ox Interpretation: Normal Progress Note: Blood work and labs were ordered. Patient will be evaluated by CRISIS counselor at bed side. Patient was given Klor-Con 10. Disposition Discussed With : Anuj Fleming Comment: accepted the pt on his service and took over the care at 4:53 AM Doctor Will See Patient In The: Hospital Counseled Patient/Family Regarding: Studies Performed, Diagnosis - Disposition Disposition: HOSPITALIZED Disposition Time: 03:20 Condition: FAIR Forms: [facility] (Kiswahili) - POA Present On Arrival: Poor Glycemic Control - Clinical Impression Clinical Impression: Major depressive disorder, recurrent, unspecified, Cocaine use disorder, severe , dependence - Scribe Statement The provider has reviewed the documentation as recorded by the Scribe Antoinette Dow All medical record entries made by the Scribe were at my direction and personally dictated by me. I have reviewed the chart and agree that the record accurately reflects my personal performance of the history, physical exam, medical decision making, and the department course for this patient. I have also personally directed, reviewed, and agree with the discharge instructions and disposition.
[2017-02-20 03:30] LABS: BASO % 0.7 % (0.0-2.0); EOS # 0.1 K/uL (0.0-0.7); HEMATOCRIT 45.8 % (35.0-51.0); LYMPH # 1.2 K/uL (1.0-4.3); LYMPH % 20.3 % (20.0-40.0); MEAN CELL VOLUME 88.4 fL (80.0-94.0); MEAN CORPUSCULAR HEMOGLOBIN 29.8 pg (27.0-31.0); MEAN CORPUSCULAR HGB CONC 33.7 g/dL (33.0-37.0); MEAN PLATELET VOLUME 8.5 fL (7.2-11.7); MONO # 0.5 K/uL (0.0-0.8); NRBC % 0.2 % (0.0-2.0); RED CELL DISTRIBUTION WIDTH 13.8 % (11.5-14.5)
[2017-02-20 03:40] LABS: ALB/GLOB RATIO 1.6 (1.0-2.1); ALCOHOL SERUM < 10 mg/dl (0-10); ALKALINE PHOSPHATASE 60 U/L (38-126); ALT/SGPT 70 U/L (21-72); AST/SGOT 31 U/L (17-59); BLOOD UREA NITROGEN 12 mg/dL (9-20); CALCIUM 8.6 mg/dl (8.6-10.4); CARBON DIOXIDE 25 mmol/L (22-30); CHLORIDE 100 mmol/L (98-107); GFR AFRICAN-AMERICAN > 60; GLUCOSE,RANDOM 173 mg/dL (75-110); POTASSIUM 3.1 mmol/L (3.6-5.2); SODIUM 136 mmol/L (132-148); TOTAL PROTEIN 6.8 g/dL (6.3-8.3)
[2017-02-20] MEDS ORDERED: Potassium Chloride 10 mEq ER Tab PO STA (04:03)
[2017-02-20] MEDS ORDERED: Potassium Chloride 10 mEq ER Tab PO ONE (04:09)
[2017-02-20 04:31] LABS: RBC URINE < 1 /hpf (0-3); URINE BILIRUBIN NEGATIVE (NEGATIVE); URINE BLOOD NEGATIVE (NEGATIVE); URINE COLOR Yellow (YELLOW); URINE GLUCOSE (UA) NORMAL (Normal); URINE KETONE TRACE mg/dL (NEGATIVE); URINE LEUKOCYTE ESTERASE NEG Leu/uL (Negative); URINE PROTEIN NEGATIVE (NEGATIVE); WBC URINE 1 /hpf (0-5)
--- NOTE | 2017-02-20 06:30 | PCM.BM ---
<PaigeJocelyne Huang - Last Filed: 02/20/17 06:28> Treatment Plan Problems - Problems identified on initial assessmt Suicidal Ideation Date Initiated: 02/20/17 Time Initiated: 06:10 Assessment reference: NA Status: Active Depression Date Initiated: 02/20/17 Time Initiated: 06:10 Assessment reference: NA Status: Active Substance Abuse Date Initiated: 02/20/17 Time Initiated: 06:10 Assessment reference: NA Status: Active Treatment assets and liabiliti Patient Assests: cooperative, ADL independent, negotiates basic needs Patient Liabilities: live alone, financial problems, substance abuse - Milieu Protocol Maintain good personal hygiene: daily Encourage regular showers, daily Remind patient to perform daily oral care, daily Assist patient to perform ADL's Conduct patient checks and document Observation sheet: Q15 minutes Maintain personal safety: every shift Educate patient to report safety concerns to staff, every shift Monitor environment for contraband/sharps Medication safety: Monitor for expected outcome, potential side effects: every shift, Assess barriers to learning: every shift, Assess readiness for medication education: every shift <Matt Amanda - Last Filed: 02/21/17 11:24> - Diagnosis (1) Major depressive disorder, recurrent, unspecified Status: Acute Interventions: 02/21/17 11:24 * Assess/adjust medications daily and /or as needed * See patient on an individual basis 7x/week to assess level of depressive behaviors and stability * Discuss risks, benefits, side effects and alternatives of medications * <Rachana Palma - Last Filed: 02/21/17 11:25> Family Contact Family involvement: Famliy/SO not involved - Goals for Treatment Patient goals for treatment: "I need help." Discharge/Continuing Care - Education Needs Education Needs: Patient Medication, Patient Coping Skills, Patient Placement options, Patient Community resources - Discharge Discharge Criteria: Tolerates medication w/o severe side effects, Free of Suicidal thoughts, No longer exhibiting s/s of withdrawal, Reduction of target symptoms Discharge to:: Residential - Treatment Team Participation Discussed with Family/SO: No Was Patient/Family/SO present at Treatment Team Meeting: Yes
--- NOTE | 2017-02-20 12:26 | PCM.PSYCH ---
Initial Psychiatric Evaluation - Initial Psychiatric Evaluation Type of Admission: Voluntary Legal Status: Capacity Chief Complaint (in patient's own words): I was feeling depressed.' History of Present Illness and Precipitating Events: This is a 51yo HM, who is currently homeless and unemployed, with a long history of major depressive disorder and cocaine dependence came to the hospital suicidal ideation with a plan to jump into the river. Patient has a long history of major depressive disorder and he had been admitted at [facility] in the past. He was last discharged almost 6 months ago, with a plan to follow-up with outpatient clinic. As per the ED notes: "patient reported Suicidal thoughts, and depressed mood saying, 'actually, I was going to jump in the river." Pt has had thoughts of suicide since the beginning of this month. 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 Pt is also "3 months" behind in rent, and he is consequently fearful he will be evicted from his apartment (Pt lives alone). Pt does have a prior hx of attempting suicide. In 1991, Pt od on "65 pills"; Pt was consequently admitted to [facility]; And in 1994, Pt ingested rat poison, and he was subsequently [place] [facility] He reports depressed mood, feelings of hopelessness and helplessness and anhedonia. He reports poor sleep and poor appetite. However he denies any auditory or visual hallucinations or any delusions. He denies any manic symptoms.. PMH Asthma, Allergic to seafood and shellfish. Current Medications: Active Medications Generic Name Dose Route Start Last Admin Trade Name Rizwanq PRN Reason Stop Dose Admin Pneumococcal Polyvalent Vaccine 0.5 ml 02/23/17 10:00 Pneumovax 23 Vaccine IM 02/23/17 10:01 .ONCE ONE Past Psychiatric History - Past Psychiatric History Previous Treatment History: Inpatient Pertinent Medical Hx (Current Medical&Sleep Prob, Allergies): Allergies Allergy/AdvReac Type Severity Reaction Status Date / Time FISH Allergy ANAPHYLAXIS Verified 02/20/17 02:59 Fish Containing Products Allergy ANAPHYLAXIS Verified 02/20/17 02:59 shellfish derived Allergy ANAPHYLAXIS Verified 02/20/17 02:59 seafood Allergy ANAPHYLAXIS Uncoded 02/20/17 02:59 metFORMIN [glucOPHAGE] 850 mg PO BID 12/25/16 Albuterol HFA [Ventolin HFA 90 mcg/actuation (8 g)] 2 puff IH Q4H #1 puff Review of Systems - Review of Systems All systems: reviewed and no additional remarkable complaints except - Psychiatric Psychiatric: Anxiety, Depression, Hopelessness, Irritability, Suicidal Ideation Mental Status Examination - Personal Presentation Personal Presentation: Looks stated age - Affect Affect: Constricted, Depressed - Motor Activity Motor Activity: Calm - Reliability in Providing Information Reliability in Providing Information: Good - Speech Speech: Organized - Mood Mood: Depressed, Anxious - Formal Thought Process Formal Thought Process: No Impairment - Obsessions/Compulsions Obsessions: No Compulsions: No - Cognitive Functions Orientation: Person, Place, Situation, Time Sensorium: Alert Attention/Concentration: Attentive Abstract Thinking: [place] Estimate of Intelligence: Below average Judgement: Imparied, as evidence by: Poor judgement, Imparied, as evidence by: Lack of insight into illness - Risk Risk: Suicidal, Diminished functioning - Limitations Limitations: Living alone DSM 5 DX - DSM 5 DSM 5 Diagnosis: Major depressive disorder recurrent severe without psychotic features Cocaine use disorder severe Opioid use disorder severe in early remission - Recommended/Plan of Treatment Treatment Recommendations and Plan of Treatment: Major depressive disorder recurrent severe without psychotic features CBT Psychoeducation Supportive therapy, group therapy, individual therapy Paxil 10 mg by mouth daily Seroquel 50 mg Trazodone 50 mg by mouth daily at bedtime Cocaine use disorder severe Monitor signs and symptoms Use [place] for abstinence Opioid use disorder severe in early remission CBT Psychoeducation Supportive therapy, individual therapy Use [place] for abstinence DM Continue prescribed medications Monitor for signs and symptoms Asthma Continue prescribed medications Monitor for signs and symptoms - Smoking Cessation Smoking Cessation Initiated: No
[2017-02-20] MEDS: Albuterol HFA 90 mcg/actuation (8 g) IH SCH ×4 (15:49→23:07)
[2017-02-21] MEDS: Albuterol HFA 90 mcg/actuation (8 g) IH PRN ×2 (09:56→21:24)
--- NOTE | 2017-02-21 11:22 | PCM.PYCHPN ---
Psychiatric Progress Note - Psychiatric Progress Note Patient seen today, length of contact: 16 min Patient Chief Complaint: I am feeling depressed.' Problems Identified/Issues Discussed: Patient seen and evaluated, chart reviewed and discussed with the nurse. Patient remained isolated, confined and withdrawn. He reports depressed mood and feelings of hopelessness and helplessness. He is taking medication and denies any side effects. Patient denies any withdrawal symptoms. He needs more time for stabilization. Supportive therapy and psychoeducation were given. Medication Change: No Medical Record Reviewed: Yes Mental Status Examination - Cognitive Function Orientation: Person, Place, Situation, Time Memory: Intact Attention: WNL Concentration: Poor Association: WNL Fund of Knowledge: Poor - Mood Mood: Depressed, Anxious - Affect Affect: Constricted, Depressed - Speech Speech: Soft - Formal Thought Process Formal Thought Process: No Impairment - Suicidal Ideation Suicidal Ideation: No - Homicidal Ideation Homicidal Ideation: No Goal/Treatment Plan - Goal/Treatment Plan Need for Continued Stay: Severe depression anxiety, Severe functional impairment Progress Toward Problem(s) and Goals/Treatment Plan: Major depressive disorder recurrent severe without psychotic features CBT Psychoeducation Supportive therapy, group therapy, individual therapy Paxil 10 mg by mouth daily Seroquel 50 mg Trazodone 50 mg by mouth daily at bedtime Cocaine use disorder severe Monitor signs and symptoms Use [place] for abstinence Opioid use disorder severe in early remission CBT Psychoeducation Supportive therapy, individual therapy Use [place] for abstinence DM Continue prescribed medications (Metformin) Monitor blood sugar with Accu checks Asthma Continue prescribed medications (inhaler) Monitor for signs and symptoms - Smoking Cessation Smoking Cessation Initiated: No
[2017-02-22] MEDS: Albuterol HFA 90 mcg/actuation (8 g) IH PRN ×2 (09:55→17:43)
--- NOTE | 2017-02-22 15:05 | PCM.PYCHPN ---
Psychiatric Progress Note - Psychiatric Progress Note Patient seen today, length of contact: 15 min Patient Chief Complaint: "I'm so-so" Problems Identified/Issues Discussed: This patient was seen, chart reviewed, and case discussed with staff. Patients and staff report no events overnight. He reports he slept well. He continues to report feelings of depression and anxiety. He still reports feelings of hopelessness however, denies any suicidal or homicidal ideations. He denies any auditory or visual hallucinations or feelings of paranoia. Patient appears disheveled but appropriately dressed. He is cooperative but remains guarded during the interview. He is isolated with limited social interactions. Patient is compliant with medications and denies any side effects. Symptoms persist and need more time to stabilize. Support and psychoeducation given. Medication Change: Yes (increase Paxil) Medical Record Reviewed: Yes Mental Status Examination - Cognitive Function Orientation: Person, Place, Situation, Time Memory: Intact Attention: WNL Concentration: Poor Association: WNL Fund of Knowledge: Poor - Mood Mood: Depressed, Anxious - Affect Affect: Constricted, Depressed - Speech Speech: Soft - Formal Thought Process Formal Thought Process: No Impairment - Suicidal Ideation Suicidal Ideation: No - Homicidal Ideation Homicidal Ideation: No Goal/Treatment Plan - Goal/Treatment Plan Need for Continued Stay: Discharge may exacerbated symptoms Progress Toward Problem(s) and Goals/Treatment Plan: Major depressive disorder recurrent severe without psychotic features CBT Psychoeducation Supportive therapy, group therapy, individual therapy Paxil 20 mg by mouth daily Seroquel 50 mg Trazodone 50 mg by mouth daily at bedtime Cocaine use disorder severe Monitor signs and symptoms Use [place] for abstinence Opioid use disorder severe in early remission CBT Psychoeducation Supportive therapy, individual therapy Use [place] for abstinence DM Continue prescribed medications (Metformin) Monitor blood sugar with Accu checks Asthma Continue prescribed medications (inhaler) Monitor for signs and symptoms - Smoking Cessation Smoking Cessation Initiated: No
[2017-02-23] MEDS ORDERED: Pneumococcal 23-Valent Vaccine IM ONE (10:00)
[2017-02-23] MEDS ORDERED: Influenza Vaccine 60 mcg/0.5 mL SYR (4YR UP) IM ONE (10:00)
--- NOTE | 2017-02-23 14:16 | PCM.PYCHPN ---
Psychiatric Progress Note - Psychiatric Progress Note Patient seen today, length of contact: 16 min Patient Chief Complaint: "I don't know, I'm okay I guess Problems Identified/Issues Discussed: This patient was seen, chart reviewed, and case discussed with staff. Patient reports poor sleep, stating "I barely slept," and complains of "shaking hands" since 3:00am this morning. He reports that he was very irritable yesterday and upset for most of the day. When asked why he felt this way he states, "I'm not sure, it's just how I felt." He continues to report feelings of depression, anxiety, and hopelessness, though "better than other days." He denies any auditory or visual hallucinations. He reports some feelings of paranoia at times throughout the day. He denies any suicidal or homicidal ideations. Patient appears disheveled. He is cooperative. He has limited social interactions but staff report he was socializing yesterday and showing improvement. Patient is compliant with medications and denies any side effects. Symptoms are improving but need more time to stabilize. Support and psychoeducation given. Medical Record Reviewed: Yes Mental Status Examination - Cognitive Function Orientation: Person, Place, Situation, Time Memory: Intact Attention: WNL Concentration: Poor Association: WNL Fund of Knowledge: Poor - Mood Mood: Depressed, Anxious - Affect Affect: Constricted, Depressed - Speech Speech: Soft - Formal Thought Process Formal Thought Process: No Impairment - Suicidal Ideation Suicidal Ideation: No - Homicidal Ideation Homicidal Ideation: No Goal/Treatment Plan - Goal/Treatment Plan Need for Continued Stay: Severe depression anxiety, Severe functional impairment Progress Toward Problem(s) and Goals/Treatment Plan: Major depressive disorder recurrent severe without psychotic features CBT Psychoeducation Supportive therapy, group therapy, individual therapy Paxil 20 mg by mouth daily Seroquel 50 mg Trazodone 50 mg by mouth daily at bedtime Cocaine use disorder severe Monitor signs and symptoms Use [place] for abstinence Opioid use disorder severe in early remission CBT Psychoeducation Supportive therapy, individual therapy Use [place] for abstinence DM Continue prescribed medications (Metformin) Monitor blood sugar with Accu checks Asthma Continue prescribed medications (inhaler) Monitor for signs and symptoms
[2017-02-23] MEDS: Albuterol HFA 90 mcg/actuation (8 g) IH PRN (15:39)
[2017-02-23] MEDS: Vitamins A & D Oint UD Foilpak TOP SCH (21:44)
--- NOTE | 2017-02-24 09:01 | PCM.PYCHPN ---
Psychiatric Progress Note - Psychiatric Progress Note Patient seen today, length of contact: 16 min Patient Chief Complaint: "I don't know, I'm okay I guess Problems Identified/Issues Discussed: This patient was seen, chart reviewed, and case discussed with staff. Patient reports poor sleep, stating "I barely slept," and complains of "shaking hands" since 3:00am this morning. He reports that he was very irritable yesterday and upset for most of the day. When asked why he felt this way he states, "I'm not sure, it's just how I felt." He continues to report feelings of depression, anxiety, and hopelessness, though "better than other days." He denies any auditory or visual hallucinations. He reports some feelings of paranoia at times throughout the day. He denies any suicidal or homicidal ideations. Patient appears disheveled. He is cooperative. He has limited social interactions but staff report he was socializing yesterday and showing improvement. Patient is compliant with medications and denies any side effects. Symptoms are improving but need more time to stabilize. Support and psychoeducation given. Medication Change: No Medical Record Reviewed: Yes Mental Status Examination - Cognitive Function Orientation: Person, Place, Situation, Time Memory: Intact Attention: WNL Concentration: Poor Association: WNL Fund of Knowledge: Poor - Mood Mood: Depressed, Anxious - Affect Affect: Constricted, Depressed - Speech Speech: Soft - Formal Thought Process Formal Thought Process: No Impairment - Suicidal Ideation Suicidal Ideation: No - Homicidal Ideation Homicidal Ideation: No Goal/Treatment Plan - Goal/Treatment Plan Need for Continued Stay: Severe depression anxiety, Severe functional impairment Progress Toward Problem(s) and Goals/Treatment Plan: Major depressive disorder recurrent severe without psychotic features CBT Psychoeducation Supportive therapy, group therapy, individual therapy Paxil 10 mg by mouth daily Seroquel 50 mg Trazodone 50 mg by mouth daily at bedtime Cocaine use disorder severe Monitor signs and symptoms Use [place] for abstinence Opioid use disorder severe in early remission CBT Psychoeducation Supportive therapy, individual therapy Use [place] for abstinence DM Continue prescribed medications (Metformin) Monitor blood sugar with Accu checks Asthma Continue prescribed medications (inhaler) Monitor for signs and symptoms
[2017-02-24] MEDS: Vitamins A & D Oint UD Foilpak TOP SCH ×2 (09:14→17:02)
[2017-02-24 10:05] LABS: ALKALINE PHOSPHATASE 71 U/L (38-126); ALT/SGPT 63 U/L (21-72); AST/SGOT 40 U/L (17-59); BILIRUBIN,TOTAL 0.3 mg/dL (0.2-1.3); BLOOD UREA NITROGEN 14 mg/dL (9-20); CARBON DIOXIDE 31 mmol/L (22-30); CHLORIDE 100 mmol/L (98-107); GFR AFRICAN-AMERICAN > 60; GLUCOSE,RANDOM 130 mg/dL (75-110); POTASSIUM 4.4 mmol/L (3.6-5.2); SODIUM 138 mmol/L (132-148); TOTAL PROTEIN 7.9 g/dL (6.3-8.3)
[2017-02-24] MEDS: Albuterol HFA 90 mcg/actuation (8 g) IH PRN ×2 (15:39→22:27)
[2017-02-25] MEDS: Vitamins A & D Oint UD Foilpak TOP SCH ×2 (09:16→17:30)
--- NOTE | 2017-02-25 09:24 | PCM.PYCHPN ---
Psychiatric Progress Note - Psychiatric Progress Note Patient seen today, length of contact: 16 min Patient Chief Complaint: "I don't know, I'm okay I guess Problems Identified/Issues Discussed: This patient was seen, chart reviewed, and case discussed with staff. Patient reports poor sleep, stating "I barely slept," and complains of "shaking hands" since 3:00am this morning. He reports that he was very irritable yesterday and upset for most of the day. When asked why he felt this way he states, "I'm not sure, it's just how I felt." He continues to report feelings of depression, anxiety, and hopelessness, though "better than other days." He denies any auditory or visual hallucinations. He reports some feelings of paranoia at times throughout the day. He denies any suicidal or homicidal ideations. Patient appears disheveled. He is cooperative. He has limited social interactions but staff report he was socializing yesterday and showing improvement. Patient is compliant with medications and denies any side effects. Symptoms are improving but need more time to stabilize. Support and psychoeducation given. Medication Change: No Medical Record Reviewed: Yes Mental Status Examination - Cognitive Function Orientation: Person, Place, Situation, Time Memory: Intact Attention: WNL Concentration: Poor Association: WNL Fund of Knowledge: Poor - Mood Mood: Depressed, Anxious - Affect Affect: Constricted, Depressed - Speech Speech: Soft - Formal Thought Process Formal Thought Process: No Impairment - Suicidal Ideation Suicidal Ideation: No - Homicidal Ideation Homicidal Ideation: No Goal/Treatment Plan - Goal/Treatment Plan Need for Continued Stay: Severe depression anxiety, Severe functional impairment Progress Toward Problem(s) and Goals/Treatment Plan: Major depressive disorder recurrent severe without psychotic features CBT Psychoeducation Supportive therapy, group therapy, individual therapy Paxil 20 mg by mouth daily Seroquel 50 mg Trazodone 50 mg by mouth daily at bedtime Cocaine use disorder severe Monitor signs and symptoms Use [place] for abstinence Opioid use disorder severe in early remission CBT Psychoeducation Supportive therapy, individual therapy Use [place] for abstinence DM Continue prescribed medications (Metformin) Monitor blood sugar with Accu checks Asthma Continue prescribed medications (inhaler) Monitor for signs and symptoms
[2017-02-25] MEDS: Albuterol HFA 90 mcg/actuation (8 g) IH PRN ×2 (16:09→20:54)
[2017-02-26] MEDS: Vitamins A & D Oint UD Foilpak TOP SCH ×2 (09:38→17:22)
--- NOTE | 2017-02-26 15:25 | PCM.PYCHPN ---
Psychiatric Progress Note - Psychiatric Progress Note Patient seen today, length of contact: 16 min Patient Chief Complaint: I'm okay" Problems Identified/Issues Discussed: This patient was seen, chart reviewed, and case discussed with staff. Patient reports better sleep. He states that he is still experiencing feelings of depression and anxiety. He also reports suicidal ideations, but no homicidal ideations. He denies any auditory or visual hallucinations. He states that his appetite is better. Patient appears slightly disheveled and was interviewed while he was in bed. He is cooperative. Pt blood sugar is under control. Patient is compliant with medications and denies any side effects. Symptoms are improving but need more time to stabilize. Support and psychoeducation given. Medication Change: No Medical Record Reviewed: Yes Mental Status Examination - Cognitive Function Orientation: Person, Place, Situation, Time Memory: Intact Attention: WNL Concentration: Poor Association: WNL Fund of Knowledge: Poor - Mood Mood: Depressed, Anxious - Affect Affect: Constricted, Depressed - Speech Speech: Soft - Formal Thought Process Formal Thought Process: No Impairment - Suicidal Ideation Suicidal Ideation: Yes - Homicidal Ideation Homicidal Ideation: No Goal/Treatment Plan - Goal/Treatment Plan Need for Continued Stay: Severe depression anxiety, Discharge may exacerbated symptoms, Severe functional impairment Progress Toward Problem(s) and Goals/Treatment Plan: Major depressive disorder recurrent severe without psychotic features CBT Psychoeducation Supportive therapy, group therapy, individual therapy Paxil 20 mg by mouth daily Seroquel 50 mg Trazodone 50 mg by mouth daily at bedtime Cocaine use disorder severe Monitor signs and symptoms Use [place] for abstinence Opioid use disorder severe in early remission CBT Psychoeducation Supportive therapy, individual therapy Use [place] for abstinence DM Continue prescribed medications (Metformin) Monitor blood sugar with Accu checks Asthma Continue prescribed medications (inhaler) Monitor for signs and symptoms
[2017-02-26] MEDS: Albuterol HFA 90 mcg/actuation (8 g) IH PRN (19:41)
[2017-02-27 07:31] VITALS: O2SAT 96
[2017-02-27] MEDS: Vitamins A & D Oint UD Foilpak TOP SCH ×2 (09:35→17:09)
[2017-02-27] MEDS: Albuterol HFA 90 mcg/actuation (8 g) IH PRN ×3 (09:35→23:37)
--- NOTE | 2017-02-27 11:55 | PCM.PYCHPN ---
Psychiatric Progress Note - Psychiatric Progress Note Patient seen today, length of contact: 16 min Patient Chief Complaint: I'm okay" Problems Identified/Issues Discussed: This patient was seen, chart reviewed, and case discussed with staff. Patient reports better sleep. He states improvement in the depressed mood and anxiety. He denies any suicidal ideations, homicidal ideations, auditory or visual hallucinations. He states that his appetite is better. Patient appears slightly disheveled and was interviewed while he was in bed. He is cooperative. Pt blood sugar is under control. Patient is compliant with medications and denies any side effects. Symptoms are improving but need more time to stabilize. Support and psychoeducation given. Medication Change: No Medical Record Reviewed: Yes Mental Status Examination - Cognitive Function Orientation: Person, Place, Situation, Time Memory: Intact Attention: WNL Concentration: Poor Association: WNL Fund of Knowledge: Poor - Mood Mood: Depressed, Anxious - Affect Affect: Constricted, Depressed - Speech Speech: Soft - Formal Thought Process Formal Thought Process: No Impairment - Suicidal Ideation Suicidal Ideation: Yes - Homicidal Ideation Homicidal Ideation: No Goal/Treatment Plan - Goal/Treatment Plan Need for Continued Stay: Severe depression anxiety, Discharge may exacerbated symptoms, Severe functional impairment Progress Toward Problem(s) and Goals/Treatment Plan: Major depressive disorder recurrent severe without psychotic features CBT Psychoeducation Supportive therapy, group therapy, individual therapy Paxil 20 mg by mouth daily Seroquel 50 mg Trazodone 50 mg by mouth daily at bedtime Cocaine use disorder severe Monitor signs and symptoms Use [place] for abstinence Opioid use disorder severe in early remission CBT Psychoeducation Supportive therapy, individual therapy Use [place] for abstinence DM Continue prescribed medications (Metformin) Monitor blood sugar with Accu checks Asthma Continue prescribed medications (inhaler) Monitor for signs and symptoms
[2017-02-28 06:55] VITALS: BP 142/95; PULSE 49; RESP 18; TEMP 98.1
[2017-02-28] MEDS: Vitamins A & D Oint UD Foilpak TOP SCH (09:41)
--- NOTE | 2017-02-28 11:31 | PCM.PYCHDC ---
Mental Status Examination - Mental Status Examination Orientation: Person, Place, Situation, Time Memory: Intact Mood: Neutral Affect: Constricted Speech: Soft Attention: WNL Concentration: WNL Association: WNL Fund of Knowledge: WNL Formal Thought Process: No Impairment Description of patient's judgement and insight: good, fair Psychotic Thoughts and Behaviors: denies any AVH Suicidal Ideation: No Current Homicidal Ideation?: No Discharge Summary - Discharge Note Reason for Hospitalization: This is a 51yo HM, who is currently homeless and unemployed, with a long history of major depressive disorder and cocaine dependence came to the hospital suicidal ideation with a plan to jump into the river. Patient has a long history of major depressive disorder and he had been admitted at [facility] in the past. He was last discharged almost 6 months ago, with a plan to follow-up with outpatient clinic. As per the ED notes: "patient reported Suicidal thoughts, and depressed mood saying, 'actually, I was going to jump in the river." Pt has had thoughts of suicide since the beginning of this month. 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 Pt is also "3 months" behind in rent, and he is consequently fearful he will be evicted from his apartment (Pt lives alone). Pt does have a prior hx of attempting suicide. In 1991, Pt od on "65 pills"; Pt was consequently admitted to [facility]; And in 1994, Pt ingested rat poison, and he was subsequently admitted to [facility]. He reports depressed mood, feelings of hopelessness and helplessness and anhedonia. He reports poor sleep and poor appetite. However he denies any auditory or visual hallucinations or any delusions. He denies any manic symptoms.. Laboratory Data: Abnormal Lab Results 02/27/17 02/28/17 17:10 07:29 POC Glucose (mg/dL) 100 94 Consultations:: List each consultation separately and include: 1. Reason for request. 2. Findings. 3. Follow-up Summary of Hospital Course include:: 1. Description of specific treatment plan utilized for patients during their course of treatmen. 2. Summarize the time- course for resolution of acute symptoms and/or regressed behaviors. 3. Describe issues identified and worked on during hospitalization. 4. Describe medication utilized. 5. Describe medical problems identified and treated. 6. Reassessment of suicide risk Summary of Hospital Course: During the course of his stay, patient (pt) started progressively improving and he no longer remained irritable, depressed, and suicidal. His mood and anxiety symptoms were improved and he started attending groups and meetings and started socializing. Patient denied any feelings of hopelessness, helplessness, and worthlessness, denied any problem with the sleep or appetite, denied suicidal ideation or homicidal ideation. Pt denied any auditory or visual hallucinations. Some changes were made in his current medications and patient was discharged on following medications. He tolerated these medications very well and denied any side effects. He was discharged to [facility]. - Diagnosis (1) Major depressive disorder, recurrent, unspecified Status: Acute - Final Diagnosis (DSM 5) Condition upon Discharge: FAIR DSM 5: Major depressive disorder recurrent severe without psychotic features Cocaine use disorder severe Opioid use disorder severe in early remission Disposition: HOME/ ROUTINE Follow-up Treatment Plan: Education: Pt was educated and counseled about the risks and benefits of taking and not taking medications. Pt was educated and counseled about the risks of drinking and abusing drugs. Pt was educated and counseled to go to the ER or call 911 if pt develop suicidal ideation or homicidal ideation, worsening of symptoms or severe side effects of the meds. Prescriptions/Medication Reconciliation: metFORMIN [glucOPHAGE] 850 mg PO BID #60 tab PARoxetine [Paxil] 20 mg PO QAM #30 tab QUEtiapine [Seroquel] 50 mg PO HS #30 tab traZODone [Desyrel] 50 mg PO HS #30 tab - Smoking Cessation Smoking Cessation Medication prescribed: No - Antipsychotic Medications Pt discharged on 2 or more routine antipsychotic medications: No
== END 2017-02-28 12:30 | disposition home or self-care (01) | DRG 430 ==
LOC: C.ER 02:36 → C.5E 04:52
PROVIDERS: ADMIT Psychiatry & Neurology Psychiatry; ATTEND Psychiatry & Neurology Psychiatry
PROC: GZ56ZZZ Individual Psychotherapy, Supportive (ICD-10-PCS; principal; 2017-02-20)
DX: F33.2 Major depressive disorder, recurrent severe without psychotic features (principal); F14.20 Cocaine dependence, uncomplicated; J44.9 Chronic obstructive pulmonary disease, unspecified; F22 Delusional disorders; F41.9 Anxiety disorder, unspecified; F11.21 Opioid dependence, in remission; E11.9 Type 2 diabetes mellitus without complications; Z59.0 Homelessness; Z91.013 Allergy to seafood; Z79.4 Long term (current) use of insulin

== ENCOUNTER 2017-05-25 02:50 | Inpatient (IN) | payer MEDICAID, OTHER ==
[2017-05-25 02:50] VITALS: BMI 36.6
[2017-05-25] MEDS ORDERED: Albuterol-Ipratrop 3 mg / 0.5 (3 ml) UD INH STA (03:10)
--- NOTE | 2017-05-25 03:11 | C.PDOC ---
History Of Present Illness 51yo male with history of depression, presents to ER with suicidal ideation and non-specific plan. He denies any fever, chills, chest pain or shortness of breath. No other complaints. Time Seen by Provider: 05/25/17 02:58 Chief Complaint (Nursing): Psychiatric Evaluation History Per: Patient History/Exam Limitations: no limitations Onset/Duration Of Symptoms: Days Current Symptoms Are (Timing): Still Present Associated Symptoms: Suicidal Thoughts, Suicidal Plan (non specific) Past Medical History Reviewed: Historical Data, Nursing Documentation, Vital Signs Vital Signs: Last Vital Signs Temp 97.8 F 05/25/17 02:58 Pulse 77 05/25/17 02:58 Resp 20 05/25/17 02:58 BP 124/79 05/25/17 02:58 Pulse Ox 97 05/25/17 03:18 - Medical History PMH: Anxiety, Asthma, Bronchitis, COPD, Depression, Diabetes, Fractures (Left foot fracture), Gastritis Denies: Hepatitis, HIV, HTN, Chronic Kidney Disease, Seizures, Sexually Transmitted Disease Surgical History: No Surg Hx - [facility] Procedures APPLICATION OF SPLINT (07/21/14) GROUP PSYCHOTHERAPY (08/31/16) INDIV PSYCHOTHERAPY FOR SUBSTANCE ABUSE TREATMENT, SUPPORT (08/31/16) INDIVIDUAL PSYCHOTHERAPY, SUPPORTIVE (02/20/17) INJECT/INFUSE NEC (09/26/13) MEDICATION MANAGEMENT (08/31/16) NEBULIZER THERAPY (08/05/14) PHARMACOTHERAPY FOR SUBSTANCE ABUSE, OTH REPLACE MED (08/31/16) Family History: States: Unknown Family Hx, Diabetes - Social History Hx Alcohol Use: Yes (Occasional) Hx Substance Use: Yes (Cocaine) - Immunization History Hx Tetanus Toxoid Vaccination: No Hx Influenza Vaccination: No Hx Pneumococcal Vaccination: Yes Review Of Systems Except As Marked, All Systems Reviewed And Found Negative. Constitutional: Negative for: Fever, Chills Cardiovascular: Negative for: Chest Pain Respiratory: Negative for: Shortness of Breath Psych: Positive for: Suicidal ideation Physical Exam - Physical Exam Appears: Non-toxic Skin: Normal Color Head: Normacephalic Eye(s): bilateral: Normal Inspection Neck: Normal ROM, Supple Chest: Symmetrical Cardiovascular: Rhythm Regular Respiratory: Wheezing (bilateral) Neurological/Psych: Oriented x3, Normal Speech, Normal Cognition ED Course And Treatment - Laboratory Results Result Diagrams: 05/25/17 03:30 05/25/17 03:30 O2 Sat by Pulse Oximetry: 97 (RA) Pulse Ox Interpretation: Normal Medical Decision Making Medical Decision Making: Plan: -- Labs -- Duoneb 3ml INH -- 1:1 observation Disposition Discussed With : Anuj Fleming Doctor Will See Patient In The: Hospital Counseled Patient/Family Regarding: Diagnosis - Disposition Disposition: HOSPITALIZED Disposition Time: 04:13 Condition: STABLE Forms: [employer] [facility] ([place]an) - POA Present On Arrival: None - Clinical Impression Clinical Impression: Major depression, Cocaine abuse - Scribe Statement The provider has reviewed the documentation as recorded by the Scribe (Bernice Dangelo) Provider Attestation: All medical record entries made by the Scribe were at my direction and personally dictated by me. I have reviewed the chart and agree that the record accurately reflects my personal performance of the history, physical exam, medical decision making, and the department course for this patient. I have also personally directed, reviewed, and agree with the discharge instructions and disposition.
[2017-05-25] MEDS ORDERED: Albuterol-Ipratrop 3 mg / 0.5 (3 ml) UD ONE (03:31)
[2017-05-25 03:40] LABS: BASO % 0.8 % (0.0-2.0); EOS # 0.1 K/uL (0.0-0.7); EOS % 1.8 % (0.0-4.0); HEMOGLOBIN 15.5 g/dL (12.0-18.0); LYMPH # 1.1 K/uL (1.0-4.3); LYMPH % 23.9 % (20.0-40.0); MEAN CELL VOLUME 90.5 fL (80.0-94.0); MEAN CORPUSCULAR HEMOGLOBIN 30.6 pg (27.0-31.0); MEAN CORPUSCULAR HGB CONC 33.8 g/dL (33.0-37.0); MEAN PLATELET VOLUME 8.7 fL (7.2-11.7); MONO # 0.4 K/uL (0.0-0.8); MONO % 9.5 % (0.0-10.0); RBC 5.06 Mil/uL (4.40-5.90); RED CELL DISTRIBUTION WIDTH 13.7 % (11.5-14.5); URINE BILIRUBIN NEGATIVE (NEGATIVE); URINE BLOOD NEGATIVE (NEGATIVE); URINE CLARITY Clear (Clear); URINE COLOR Yellow (YELLOW); URINE GLUCOSE (UA) NORMAL (Normal); URINE LEUKOCYTE ESTERASE NEG Leu/uL (Negative); URINE PROTEIN NEGATIVE (NEGATIVE); WHITE BLOOD COUNT 4.6 K/uL (4.8-10.8)
[2017-05-25 03:50] LABS: ALB/GLOB RATIO 1.3 (1.0-2.1); ALBUMIN 3.8 g/dL (3.5-5.0); ALT/SGPT 46 U/L (21-72); AST/SGOT 26 U/L (17-59); BLOOD UREA NITROGEN 17 mg/dL (9-20); CALCIUM 8.8 mg/dl (8.6-10.4); GFR AFRICAN-AMERICAN > 60; GFR NON-AFRICAN AMERICAN > 60
[2017-05-25 03:53] LABS: BARBITURATES, UR NEGATIVE (NEGATIVE); BENZODIAZEPINES, UR NEGATIVE (NEGATIVE); OPIATES, UR NEGATIVE (NEGATIVE); PHENCYCLIDINE, UR NEGATIVE (NEGATIVE)
--- NOTE | 2017-05-25 05:46 | PCM.BM ---
<Joelle Chahal - Last Filed: 05/25/17 05:43> Treatment Plan Problems - Problems identified on initial assessmt Depresion Date Initiated: 05/25/17 Time Initiated: 05:00 Assessment reference: NA Status: Active Suide ideation Date Initiated: 05/25/17 Time Initiated: 05:00 Assessment reference: NA Status: Active Substance abuse Date Initiated: 05/25/17 Time Initiated: 05:00 Assessment reference: NA Status: Active Treatment assets and liabiliti Patient Assests: cooperative, self-reliant, ADL independent, negotiates basic needs Patient Liabilities: live alone, financial problems, poor support system, dietary restrictions, substance abuse, medical problems, legal issue - Milieu Protocol Maintain good personal hygiene: daily Encourage regular showers, daily Remind patient to perform daily oral care, daily Assist patient to perform ADL's Maintain personal safety: every shift Educate patient to report safety concerns to staff, every shift Monitor environment for contraband/sharps Medication safety: Monitor for expected outcome, potential side effects: every shift, Assess barriers to learning: every shift, Assess readiness for medication education: every shift <Rachana Palma - Last Filed: 05/25/17 11:00> Family Contact Family involvement: Famliy/SO not involved - Goals for Treatment Patient goals for treatment: "I need to find an apartment with my voucher." Discharge/Continuing Care - Education Needs Education Needs: Patient Medication, Patient Coping Skills, Patient Placement options, Patient Community resources - Discharge Discharge Criteria: Tolerates medication w/o severe side effects, No longer exhibiting s/s of withdrawal, Reduction of target symptoms Discharge to:: Other - Treatment Team Participation Discussed with Family/SO: No Was Patient/Family/SO present at Treatment Team Meeting: Yes <Matt Amanda - Last Filed: 06/01/17 17:24> - Diagnosis (1) Major depression Status: Acute Interventions: 06/01/17 17:24 * Assess/adjust medications daily and /or as needed * See patient on an individual basis 7x/week to assess symptoms of depression * Monitor for side effects & effectiveness of medications *
--- NOTE | 2017-05-25 10:58 | PCM.PSYCH ---
Initial Psychiatric Evaluation - Initial Psychiatric Evaluation Type of Admission: Voluntary Legal Status: Capacity Chief Complaint (in patient's own words): "I am feeling depressed and want to kill myself" History of Present Illness and Precipitating Events: 51-year-old male with a long history of major depression and cocaine dependence came to the hospital last night for thoughts of suicide with a plan in place to jump in front of a bus. He is currently homeless and unemployed. He was last discharged three months ago for the same reason. His medications were adjusted to Paxil 20 mg, trazodone 50 mg, and Seroquel 50 mg PO, and was told to come back to the hospital if he developed any subsequent suicidal thoughts. He reports no significant changes in his life over the last three months and was again developing thoughts of suicide so he came to the ER last night for assistance. Patient reports depressed mood, feelings of hopelessness and helplessness, poor sleep and poor appetite. Patient additionally reports auditory and visual hallucinations, but denies any distractibility, or impulsive behavior or flight of ideas. PMH: DM Current Medications: Active Medications Generic Name Dose Route Start Last Admin Trade Name Freq PRN Reason Stop Dose Admin Albuterol 1 puff 05/25/17 09:13 Ventolin Hfa 90 Mcg/Actuation (8 G) INH RQ4 PRN SOB Fluoxetine HCl 20 mg 05/25/17 10:00 05/25/17 10:03 Prozac PO 20 mg DAILY RADHA Administration Gabapentin 300 mg 05/25/17 10:00 05/25/17 10:02 Neurontin PO 300 mg BID RADHA Administration Hydroxyzine HCl 50 mg 05/25/17 08:47 Atarax PO Q6H PRN Anxiety Ibuprofen 600 mg 05/25/17 08:47 Motrin Tab PO Q6H PRN Pain, moderate (4-7) Metformin HCl 500 mg 05/25/17 10:00 05/25/17 10:02 Glucophage PO 500 mg BID RADHA Administration Pneumococcal Polyvalent Vaccine 0.5 ml 05/28/17 10:00 Pneumovax 23 Vaccine IM 05/28/17 10:01 .ONCE ONE Trazodone HCl 100 mg 05/25/17 22:00 Desyrel PO HS PRN Insomnia Past Psychiatric History - Past Psychiatric History Previous Treatment History: Inpatient Pertinent Medical Hx (Current Medical&Sleep Prob, Allergies): Allergies Allergy/AdvReac Type Severity Reaction Status Date / Time FISH Allergy ANAPHYLAXIS Verified 05/25/17 03:02 Fish Containing Products Allergy ANAPHYLAXIS Verified 05/25/17 03:02 shellfish derived Allergy ANAPHYLAXIS Verified 05/25/17 03:02 seafood Allergy Severe ANAPHYLAXIS Uncoded 05/25/17 03:02 Albuterol HFA [Ventolin HFA 90 mcg/actuation (8 g)] 2 puff IH Q4H #1 puff PARoxetine [Paxil] 20 mg PO QAM #30 tab 02/28/17 QUEtiapine [Seroquel] 50 mg PO HS #30 tab 02/28/17 metFORMIN [glucOPHAGE] 850 mg PO BID #60 tab 02/28/17 traZODone [Desyrel] 50 mg PO HS #30 tab 02/28/17 Albuterol Sulfate [Proair Hfa] 0.09 mg IH Q6 PRN #1 inh 05/08/17 Review of Systems - Review of Systems All systems: reviewed and no additional remarkable complaints except - Psychiatric Psychiatric: Anxiety, Auditory Hallucinations, Depression, Irritability, Paranoia, Suicidal Ideation, Visual Hallucinations Mental Status Examination - Personal Presentation Personal Presentation: Looks stated age - Affect Affect: Constricted, Depressed - Motor Activity Motor Activity: Calm - Reliability in Providing Information Reliability in Providing Information: Poor, due to altered mood - Speech Speech: Disorganized - Mood Mood: Depressed, Anxious - Formal Thought Process Formal Thought Process: Hallucinations, Delusions, Paranoia - Hallucinations/Delusions Hallucinations: Visual, Auditory Delusions: Persecution - Obsessions/Compulsions Obsessions: No Compulsions: No - Cognitive Functions Orientation: Person, Place, Situation, Time Sensorium: Alert Attention/Concentration: Attentive Abstract Thinking: [place] Estimate of Intelligence: Below average Judgement: Imparied, as evidence by: Poor judgement, Imparied, as evidence by: Lack of insight into illness - Risk Risk: Suicidal, Diminished functioning - Limitations Limitations: Living alone DSM 5 DX - DSM 5 DSM 5 Diagnosis: Major depressive disorder recurrent severe with psychotic features Cocaine use disorder severe - Recommended/Plan of Treatment Treatment Recommendations and Plan of Treatment: Major depressive disorder recurrent severe with psychotic features CBT Psychoeducation Supportive therapy, group therapy, individual therapy Prozac 20 mg daily Neurontin 300 mg by mouth 2 times a day Trazodone 100 mg by mouth daily at bedtime Hydroxyzine 25 mg by mouth every 6 hours Cocaine use disorder severe CBT Psychoeducation Supportive therapy, individual therapy Use [place] for abstinence DM: Continue prescribed meds - Smoking Cessation Smoking Cessation Initiated: No
--- NOTE | 2017-05-26 23:49 | PCM.PYCHPN ---
Psychiatric Progress Note - Psychiatric Progress Note Patient seen today, length of contact: 15 min Patient Chief Complaint: "I am feeling depressed.' Problems Identified/Issues Discussed: Patient seen and evaluated, chart reviewed and discussed with the nurse. As per the staff, patient still appears isolated, depressed and withdrawn. Patient still reports depressed mood and reports at times feelings of hopelessness or helplessness. He reports some improvement in the voices. He needs some more time for stabilization. He is compliant with her medications and denies any side effects. Supportive therapy and psychoeducation were given. Medication Change: Yes Medical Record Reviewed: Yes Mental Status Examination - Cognitive Function Orientation: Person, Place, Situation, Time Memory: Intact Attention: WNL Concentration: Poor Association: WNL Fund of Knowledge: Poor - Mood Mood: Depressed, Anxious - Affect Affect: Constricted, Depressed - Speech Speech: Soft - Formal Thought Process Formal Thought Process: Hallucinations, Paranoia - Suicidal Ideation Suicidal Ideation: No - Homicidal Ideation Homicidal Ideation: No Goal/Treatment Plan - Goal/Treatment Plan Need for Continued Stay: Severe depression anxiety, Severe functional impairment Progress Toward Problem(s) and Goals/Treatment Plan: Major depressive disorder recurrent severe with psychotic features CBT Psychoeducation Supportive therapy, group therapy, individual therapy Prozac 20 mg daily Neurontin 300 mg by mouth 2 times a day Trazodone 100 mg by mouth daily at bedtime Hydroxyzine 25 mg by mouth every 6 hours Cocaine use disorder severe CBT Psychoeducation Supportive therapy, individual therapy Use [place] for abstinence DM: Continue prescribed meds - Smoking Cessation Smoking Cessation Initiated: No
--- NOTE | 2017-05-27 12:50 | PCM.PYCHPN ---
Psychiatric Progress Note - Psychiatric Progress Note Patient seen today, length of contact: 16 min Patient Chief Complaint: "I am feeling depressed" Problems Identified/Issues Discussed: Patient seen and evaluated, chart reviewed and discussed with the nurse. Patient still reports depressed mood and reports at times feelings of hopelessness or helplessness. He reports some improvement in the voices. He remained isolated, and withdrawn. However he remained calm and cooperative.. Symptoms are improving but he needs some more time for stabilization. He is compliant with her medications and denies any side effects. Supportive therapy and psychoeducation were given. Medication Change: Yes (Increase Prozac) Medical Record Reviewed: Yes Mental Status Examination - Cognitive Function Orientation: Person, Place, Situation, Time Memory: Intact Attention: WNL Concentration: Poor Association: WNL Fund of Knowledge: Poor - Mood Mood: Depressed, Anxious - Affect Affect: Constricted, Depressed - Speech Speech: Soft - Formal Thought Process Formal Thought Process: Hallucinations, Paranoia - Suicidal Ideation Suicidal Ideation: No - Homicidal Ideation Homicidal Ideation: No Goal/Treatment Plan - Goal/Treatment Plan Need for Continued Stay: Severe depression anxiety, Severe functional impairment Progress Toward Problem(s) and Goals/Treatment Plan: Major depressive disorder recurrent severe with psychotic features CBT Psychoeducation Supportive therapy, group therapy, individual therapy Prozac 40 mg daily Neurontin 300 mg by mouth 2 times a day Trazodone 100 mg by mouth daily at bedtime Hydroxyzine 25 mg by mouth every 6 hours Cocaine use disorder severe CBT Psychoeducation Supportive therapy, individual therapy Use [place] for abstinence DM: Continue prescribed meds - Smoking Cessation Smoking Cessation Initiated: No
[2017-05-27] MEDS: Albuterol HFA 90 mcg/actuation (8 g) INH PRN ×2 (15:59→23:06)
[2017-05-27] MEDS: Clotrimazole 1% Cream 15 GM TUBE TOP PRN (18:20)
[2017-05-28] MEDS ORDERED: Influenza Vaccine 60 mcg/0.5 mL SYR (4YR UP) IM ONE (10:00)
[2017-05-28] MEDS ORDERED: Pneumococcal 23-Valent Vaccine IM ONE (10:00)
--- NOTE | 2017-05-28 10:19 | PCM.PYCHPN ---
Psychiatric Progress Note - Psychiatric Progress Note Patient seen today, length of contact: 15 min Patient Chief Complaint: "I am still hearing voices" Problems Identified/Issues Discussed: Patient seen and evaluated, chart reviewed and discussed with the nurse. Patient reports some improvement in his mood and reports some improvement in the feelings of hopelessness or helplessness. He still reports hearing voices and appeared paranoid. He remained isolated, and withdrawn. However he remained calm and cooperative. Symptoms are improving but he needs some more time for stabilization. He is compliant with her medications and denies any side effects. Supportive therapy and psychoeducation were given. Medication Change: Yes (Risperdal) Medical Record Reviewed: Yes Mental Status Examination - Cognitive Function Orientation: Person, Place, Situation, Time Memory: Intact Attention: WNL Concentration: Poor Association: WNL Fund of Knowledge: Poor - Mood Mood: Depressed, Anxious - Affect Affect: Constricted, Depressed - Speech Speech: Soft - Formal Thought Process Formal Thought Process: Hallucinations, Delusions, Paranoia - Suicidal Ideation Suicidal Ideation: No - Homicidal Ideation Homicidal Ideation: No Goal/Treatment Plan - Goal/Treatment Plan Need for Continued Stay: Severe depression anxiety, Severe functional impairment Progress Toward Problem(s) and Goals/Treatment Plan: Major depressive disorder recurrent severe with psychotic features CBT Psychoeducation Supportive therapy, group therapy, individual therapy Prozac 40 mg daily Risperdal 1 mg by mouth twice a day Cogentin 1 mg by mouth twice a day Neurontin 300 mg by mouth 2 times a day Trazodone 100 mg by mouth daily at bedtime Hydroxyzine 25 mg by mouth every 6 hours Cocaine use disorder severe CBT Psychoeducation Supportive therapy, individual therapy Use [place] for abstinence DM: Continue prescribed meds - Smoking Cessation Smoking Cessation Initiated: No
[2017-05-28] MEDS: Clotrimazole 1% Cream 15 GM TUBE TOP PRN (15:03)
[2017-05-28] MEDS: Multiple Vitamins Tab PO SCH (15:49)
[2017-05-28] MEDS: Albuterol HFA 90 mcg/actuation (8 g) INH PRN (18:59)
[2017-05-29] MEDS: Multiple Vitamins Tab PO SCH (10:08)
--- NOTE | 2017-05-29 10:41 | PCM.PYCHPN ---
Psychiatric Progress Note - Psychiatric Progress Note Patient seen today, length of contact: 15 min Patient Chief Complaint: "I am still hearing voices" Problems Identified/Issues Discussed: Patient seen and evaluated, chart reviewed and discussed with the nurse. Patient reports some improvement in his mood and reports some improvement in the feelings of hopelessness or helplessness. He still reports hearing voices and appeared paranoid. He remained isolated, and withdrawn. However he remained calm and cooperative. Symptoms are improving but he needs some more time for stabilization. He is compliant with her medications and denies any side effects. Supportive therapy and psychoeducation were given. Medication Change: Yes (Risperdal) Medical Record Reviewed: Yes Mental Status Examination - Cognitive Function Orientation: Person, Place, Situation, Time Memory: Intact Attention: WNL Concentration: Poor Association: WNL Fund of Knowledge: Poor - Mood Mood: Depressed, Anxious - Affect Affect: Constricted, Depressed - Speech Speech: Soft - Formal Thought Process Formal Thought Process: Hallucinations, Delusions, Paranoia - Suicidal Ideation Suicidal Ideation: No - Homicidal Ideation Homicidal Ideation: No Goal/Treatment Plan - Goal/Treatment Plan Need for Continued Stay: Severe depression anxiety, Severe functional impairment Progress Toward Problem(s) and Goals/Treatment Plan: Major depressive disorder recurrent severe with psychotic features CBT Psychoeducation Supportive therapy, group therapy, individual therapy Prozac 40 mg daily Risperdal 1 mg by mouth twice a day Cogentin 1 mg by mouth twice a day Neurontin 300 mg by mouth 2 times a day Trazodone 100 mg by mouth daily at bedtime Hydroxyzine 25 mg by mouth every 6 hours Cocaine use disorder severe CBT Psychoeducation Supportive therapy, individual therapy Use [place] for abstinence DM: Continue prescribed meds
[2017-05-29] MEDS: Clotrimazole 1% Cream 15 GM TUBE TOP PRN ×2 (14:01→19:57)
[2017-05-29] MEDS: Albuterol HFA 90 mcg/actuation (8 g) INH PRN (19:58)
[2017-05-30] MEDS: Multiple Vitamins Tab PO SCH (10:21)
--- NOTE | 2017-05-30 10:54 | PCM.PYCHPN ---
Psychiatric Progress Note - Psychiatric Progress Note Patient seen today, length of contact: 15 min Patient Chief Complaint: "I am still hearing voices" Problems Identified/Issues Discussed: Patient seen and evaluated, chart reviewed and discussed with the nurse. Patient reports some improvement in his mood and reports some improvement in the feelings of hopelessness or helplessness. He still reports hearing voices and appeared paranoid. He remained isolated, and withdrawn. However he remained calm and cooperative. Symptoms are improving but he needs some more time for stabilization. He is compliant with her medications and denies any side effects. Supportive therapy and psychoeducation were given. Medication Change: Yes (reduce Risperdal, d/c Prozac, Start Paxil) Medical Record Reviewed: Yes Mental Status Examination - Cognitive Function Orientation: Person, Place, Situation, Time Memory: Intact Attention: WNL Concentration: Poor Association: WNL Fund of Knowledge: Poor - Mood Mood: Depressed, Anxious - Affect Affect: Constricted, Depressed - Speech Speech: Soft - Formal Thought Process Formal Thought Process: Hallucinations, Delusions, Paranoia - Suicidal Ideation Suicidal Ideation: No - Homicidal Ideation Homicidal Ideation: No Goal/Treatment Plan - Goal/Treatment Plan Need for Continued Stay: Severe depression anxiety, Severe functional impairment Progress Toward Problem(s) and Goals/Treatment Plan: Major depressive disorder recurrent severe with psychotic features CBT Psychoeducation Supportive therapy, group therapy, individual therapy D/C Prozac 40 mg daily Paxil 20 mg PO Daily Reduce Risperdal 1 mg by mouth HS Reduce Cogentin 1 mg by mouth HS Neurontin 300 mg by mouth 2 times a day Trazodone 100 mg by mouth daily at bedtime Hydroxyzine 25 mg by mouth every 6 hours Cocaine use disorder severe CBT Psychoeducation Supportive therapy, individual therapy Use MD for abstinence DM: Continue prescribed meds
[2017-05-30] MEDS: Clotrimazole 1% Cream 15 GM TUBE TOP PRN (22:10)
[2017-05-31 06:21] VITALS: RESP 20
[2017-05-31] MEDS: Multiple Vitamins Tab PO SCH (10:58)
[2017-05-31] MEDS: Clotrimazole 1% Cream 15 GM TUBE TOP PRN ×2 (12:47→21:39)
--- NOTE | 2017-05-31 13:32 | PCM.PYCHPN ---
Psychiatric Progress Note - Psychiatric Progress Note Patient seen today, length of contact: 15 min Patient Chief Complaint: "I am still hearing voices" Problems Identified/Issues Discussed: Patient seen and evaluated, chart reviewed and discussed with the nurse. Patient reports some improvement in his mood and reports some improvement in the feelings of hopelessness or helplessness. He still reports hearing voices and appeared paranoid. He remained isolated, and withdrawn. However he remained calm and cooperative. Symptoms are improving but he needs some more time for stabilization. He is compliant with her medications and denies any side effects. Supportive therapy and psychoeducation were given. Medication Change: No Medical Record Reviewed: Yes Mental Status Examination - Cognitive Function Orientation: Person, Place, Situation, Time Memory: Intact Attention: WNL Concentration: Poor Association: WNL Fund of Knowledge: Poor - Mood Mood: Depressed, Anxious - Affect Affect: Constricted, Depressed - Speech Speech: Soft - Formal Thought Process Formal Thought Process: Hallucinations, Delusions, Paranoia - Suicidal Ideation Suicidal Ideation: No - Homicidal Ideation Homicidal Ideation: No Goal/Treatment Plan - Goal/Treatment Plan Need for Continued Stay: Severe depression anxiety, Severe functional impairment Progress Toward Problem(s) and Goals/Treatment Plan: Major depressive disorder recurrent severe with psychotic features CBT Psychoeducation Supportive therapy, group therapy, individual therapy Paxil 20 mg PO Daily Risperdal 1 mg by mouth HS Cogentin 1 mg by mouth HS Neurontin 300 mg by mouth 2 times a day Trazodone 100 mg by mouth daily at bedtime Hydroxyzine 25 mg by mouth every 6 hours Cocaine use disorder severe CBT Psychoeducation Supportive therapy, individual therapy Use RI for abstinence DM: Continue prescribed meds
[2017-06-01] MEDS: Multiple Vitamins Tab PO SCH (10:37)
[2017-06-01] MEDS: Clotrimazole 1% Cream 15 GM TUBE TOP PRN ×3 (10:37→21:15)
--- NOTE | 2017-06-01 17:18 | PCM.PYCHPN ---
Psychiatric Progress Note - Psychiatric Progress Note Patient seen today, length of contact: 15 min Patient Chief Complaint: "I am feeling better" Problems Identified/Issues Discussed: Patient seen and evaluated, chart reviewed and discussed with the nurse. As per staff patient is improving, however he still isolated. Patient reports some improvement in his mood and reports some improvement in the feelings of hopelessness or helplessness. He reports improvement in her paranoia. However he remained calm and cooperative. Symptoms are improving but he needs some more time for stabilization. He is compliant with her medications and denies any side effects. Supportive therapy and psychoeducation were given. Medication Change: Yes (Increase Paxil) Medical Record Reviewed: Yes Mental Status Examination - Cognitive Function Orientation: Person, Place, Situation, Time Memory: Intact Attention: WNL Concentration: Poor Association: WNL Fund of Knowledge: Poor - Mood Mood: Depressed, Anxious - Affect Affect: Constricted, Depressed - Speech Speech: Soft - Formal Thought Process Formal Thought Process: No Impairment - Suicidal Ideation Suicidal Ideation: No - Homicidal Ideation Homicidal Ideation: No Goal/Treatment Plan - Goal/Treatment Plan Need for Continued Stay: Severe depression anxiety, Severe functional impairment Progress Toward Problem(s) and Goals/Treatment Plan: Major depressive disorder recurrent severe with psychotic features CBT Psychoeducation Supportive therapy, group therapy, individual therapy Paxil 40 mg PO Daily Risperdal 1 mg by mouth HS Cogentin 1 mg by mouth HS Neurontin 300 mg by mouth 2 times a day Trazodone 100 mg by mouth daily at bedtime Hydroxyzine 25 mg by mouth every 6 hours Cocaine use disorder severe CBT Psychoeducation Supportive therapy, individual therapy Use [place] for abstinence DM: Continue prescribed meds - Smoking Cessation Smoking Cessation Initiated: No
[2017-06-01] MEDS: Albuterol HFA 90 mcg/actuation (8 g) INH PRN (21:15)
[2017-06-02] MEDS: Multiple Vitamins Tab PO SCH (10:00)
[2017-06-02] MEDS: Albuterol HFA 90 mcg/actuation (8 g) INH PRN (17:48)
[2017-06-02] MEDS: Clotrimazole 1% Cream 15 GM TUBE TOP PRN (17:56)
[2017-06-03 07:24] VITALS: O2SAT 98
[2017-06-03] MEDS: Multiple Vitamins Tab PO SCH (10:23)
[2017-06-03] MEDS: Clotrimazole 1% Cream 15 GM TUBE TOP PRN (22:46)
[2017-06-03] MEDS: Albuterol HFA 90 mcg/actuation (8 g) INH PRN (23:27)
[2017-06-04 06:01] VITALS: PULSE 61; TEMP 97.9
[2017-06-04] MEDS: Multiple Vitamins Tab PO SCH (09:42)
--- NOTE | 2017-06-04 14:08 | PCM.PYCHPN ---
Psychiatric Progress Note - Psychiatric Progress Note Patient seen today, length of contact: 15 minutes Patient Chief Complaint: "I feel good today" Problems Identified/Issues Discussed: The pt is seen, chart reviewed, case discussed with staff. Support given, CBT and [place] used briefly No new symptoms reported, improving slowly and needs more time No SEs from medications, risks discussed. After care discussed, patient states that he would like to return to his brother 's house following discharge, and f/u with [facility] in [place] At the time of evaluation, patient had no delusions, no auditory or visual hallucinations, no suicidal ideations or homicidal ideations. Medical Problems: None reported Diagnostic Results: Reviewed DSM 5 Symptoms Update: Improving with treatment Medication Change: No Medical Record Reviewed: Yes Mental Status Examination - Cognitive Function Orientation: Person, Place, Situation, Time Memory: Intact Attention: WNL Concentration: WNL Association: WN Fund of Knowledge: [facility] Decription of patient's judgement and insights: Fair - Mood Mood: Neutral - Affect Affect: Other (Appropriate) - Speech Speech: Soft - Formal Thought Process Formal Thought Process: No Impairment Psychotic Thoughts and Behaviors: None - Suicidal Ideation Suicidal Ideation: No - Homicidal Ideation Homicidal Ideation: No Goal/Treatment Plan - Goal/Treatment Plan Need for Continued Stay: Remain at risks for inpatient hospitalization, Discharge may exacerbated symptoms, Severe functional impairment Progress Toward Problem(s) and Goals/Treatment Plan: Continue medications Support and psychoeducation daily Attend groups and activities daily Patient wants to go to [facility] at [facility] for follow-up care after discharge from the hospital Estimated Date of D/C: 06/05/17 - Smoking Cessation Smoking Cessation Initiated: No
[2017-06-04 16:24] VITALS: BP 112/62
[2017-06-04] MEDS: Clotrimazole 1% Cream 15 GM TUBE TOP PRN (20:35)
[2017-06-05] MEDS: Multiple Vitamins Tab PO SCH (10:43)
--- NOTE | 2017-06-06 17:33 | PCM.PYCHDC ---
Mental Status Examination - Mental Status Examination Orientation: Person, Place, Situation, Time Memory: Intact Mood: Neutral Affect: Other (Appropriate) Speech: Soft Attention: WNL Concentration: WNL Association: WNL Fund of Knowledge: WNL Formal Thought Process: No Impairment Description of patient's judgement and insight: Fair Psychotic Thoughts and Behaviors: None Suicidal Ideation: No Current Homicidal Ideation?: No Discharge Summary - Discharge Note Reason for Hospitalization: Major depressive disorder Cocaine use disorder Laboratory Data: Reviewed Consultations:: List each consultation separately and include: 1. Reason for request. 2. Findings. 3. Follow-up Summary of Hospital Course include:: 1. Description of specific treatment plan utilized for patients during their course of treatmen. 2. Summarize the time- course for resolution of acute symptoms and/or regressed behaviors. 3. Describe issues identified and worked on during hospitalization. 4. Describe medication utilized. 5. Describe medical problems identified and treated. 6. Reassessment of suicide risk Summary of Hospital Course: 51-year-old male with a long history of major depression and cocaine dependence came to the hospital last night for thoughts of suicide with a plan in place to jump in front of a bus. He is currently homeless and unemployed. He was last discharged three months ago for the same reason. His medications were adjusted to Paxil 20 mg, trazodone 50 mg, and Seroquel 50 mg PO, and was told to come back to the hospital if he developed any subsequent suicidal thoughts. He reports no significant changes in his life over the last three months and was again developing thoughts of suicide so he came to the ER last night for assistance. Patient reports depressed mood, feelings of hopelessness and helplessness, poor sleep and poor appetite. Patient additionally reports auditory and visual hallucinations, but denies any distractibility, or impulsive behavior or flight of ideas. Plan his stay in the hospital patient was treated. Paxil, Risperdal, gabapentin and other when necessary medication along with his medication for medical illnesses. With her treatment patient started feeling better. Today patient was stable and ready for discharge. At the time of evaluation and discharge, patient was awake alert oriented 3, had no delusions, no auditory or visual hallucinations, no suicidal ideations or homicidal ideations. Patient was discharged in a stable condition - Final Diagnosis (DSM 5) Condition upon Discharge: STABLE Disposition: HOME/ ROUTINE Follow-up Treatment Plan: Patient wants to go to [facility] at [facility] for follow-up care after discharge from the hospital Prescriptions/Medication Reconciliation: Benztropine [Cogentin] 1 mg PO BID #60 tab Gabapentin [Neurontin] 300 mg PO BID #60 cap metFORMIN [glucOPHAGE] 850 mg PO BID #60 tab PARoxetine [Paxil] 40 mg PO DAILY #30 tab risperiDONE [RisperDAL Tab] 1 mg PO HS #30 tab traZODone [Desyrel] 100 mg PO HS PRN #30 tab PRN Reason: Insomnia - Smoking Cessation Smoking Cessation Medication prescribed: No - Antipsychotic Medications Pt discharged on 2 or more routine antipsychotic medications: No
== END 2017-06-05 12:50 | disposition home or self-care (01) | DRG 430 ==
LOC: C.ER 02:50 → C.5E 04:14
PROVIDERS: ADMIT Psychiatry & Neurology Psychiatry; ATTEND Psychiatry & Neurology Psychiatry
PROC: GZ3ZZZZ Medication Management (ICD-10-PCS; principal; 2017-05-25)
PROC: GZHZZZZ Group Psychotherapy (ICD-10-PCS; 2017-05-25)
PROC: GZ56ZZZ Individual Psychotherapy, Supportive (ICD-10-PCS; 2017-05-25)
PROC: HZ89ZZZ Medication Management for Substance Abuse Treatment, Other Replacement Medication (ICD-10-PCS; 2017-05-25)
PROC: HZ56ZZZ Individual Psychotherapy for Substance Abuse Treatment, Psychoeducation (ICD-10-PCS; 2017-05-25)
PROC: HZ59ZZZ Individual Psychotherapy for Substance Abuse Treatment, Supportive (ICD-10-PCS; 2017-05-25)
DX: F33.3 Major depressive disorder, recurrent, severe with psychotic symptoms (principal); R45.851 Suicidal ideations; F14.20 Cocaine dependence, uncomplicated; J44.9 Chronic obstructive pulmonary disease, unspecified; E11.9 Type 2 diabetes mellitus without complications; Z59.0 Homelessness; Z79.899 Other long term (current) drug therapy

== ENCOUNTER 2018-03-22 10:43 | Inpatient (IN) | payer MEDICAID, OTHER ==
[2018-03-22 10:44] VITALS: BMI 35.7
[2018-03-22 11:43] LABS: EOS # 0.1 K/uL (0.0-0.7); EOS % 2.8 % (0.0-4.0); HEMOGLOBIN 15.1 g/dL (12.0-18.0); LYMPH # 1.4 K/uL (1.0-4.3); LYMPH % 29.5 % (20.0-40.0); MEAN CELL VOLUME 91.3 fL (80.0-94.0); MEAN CORPUSCULAR HEMOGLOBIN 30.6 pg (27.0-31.0); MEAN CORPUSCULAR HGB CONC 33.5 g/dL (33.0-37.0); MEAN PLATELET VOLUME 8.4 fL (7.2-11.7); MONO # 0.5 K/uL (0.0-0.8); MONO % 10.7 % (0.0-10.0); NEUT # 2.7 K/uL (1.8-7.0); NRBC % 0.1 % (0.0-2.0); RBC 4.94 Mil/uL (4.40-5.90); RED CELL DISTRIBUTION WIDTH 13.1 % (11.5-14.5); WHITE BLOOD COUNT 4.8 K/uL (4.8-10.8)
--- NOTE | 2018-03-22 11:50 | C.PDOC ---
History Of Present Illness 52 year old male presents to the ED complaining of depression associated with suicidal ideation. Denies having a suicidal plan or homicidal ideation. Denies any physical symptoms. Time Seen by Provider: 03/22/18 11:07 Chief Complaint (Nursing): Psychiatric Evaluation History Per: Patient History/Exam Limitations: no limitations Onset/Duration Of Symptoms: Days Current Symptoms Are (Timing): Still Present Suicide/Self Injury Attempted (Context): None Modifying Factor(s): None Associated Symptoms: Depression, Suicidal Thoughts. denies: Suicidal Plan Past Medical History Reviewed: Historical Data, Nursing Documentation, Vital Signs Vital Signs: Last Vital Signs Temp 98.1 F 03/22/18 10:46 Pulse 79 03/22/18 10:46 Resp 17 03/22/18 10:46 BP 149/88 03/22/18 10:46 Pulse Ox 95 03/22/18 10:46 - Medical History PMH: Anxiety, Asthma, Bronchitis, COPD, Depression, Diabetes, Fractures (Left foot fracture), Gastritis, HTN, Hypercholesterolemia Denies: Hepatitis, HIV, Chronic Kidney Disease, Seizures, Sexually Transmitted Disease Surgical History: No Surg Hx - [facility] Procedures APPLICATION OF SPLINT (07/21/14) GROUP PSYCHOTHERAPY (05/25/17) INDIV PSYCHOTHERAPY FOR SUBSTANCE ABUSE TREATMENT, SUPPORT (05/25/17) INDIV PSYCHOTHERAPY FOR SUBSTANCE ABUSE, PSYCHOEDUCATION (05/25/17) INDIVIDUAL PSYCHOTHERAPY, SUPPORTIVE (05/25/17) INJECT/INFUSE NEC (09/26/13) MEDICATION MANAGEMENT (05/25/17) MEDS MGMT FOR SUBSTANCE ABUSE TREATMENT, OTH REPL MED (05/25/17) NEBULIZER THERAPY (08/05/14) PHARMACOTHERAPY FOR SUBSTANCE ABUSE, OTH REPLACE MED (08/31/16) Family History: States: Diabetes - Social History Hx Alcohol Use: Yes Hx Substance Use: Yes - Immunization History Hx Tetanus Toxoid Vaccination: No Hx Influenza Vaccination: No Hx Pneumococcal Vaccination: No Review Of Systems Except As Marked, All Systems Reviewed And Found Negative. Constitutional: Negative for: Fever, Chills Psych: Positive for: Depression, Suicidal ideation Physical Exam - Physical Exam Appears: Non-toxic, No Acute Distress Skin: Warm, Dry, No Rash Head: Normacephalic Eye(s): bilateral: Normal Inspection Neck: Supple Chest: Symmetrical Cardiovascular: Rhythm Regular Respiratory: Normal Breath Sounds, No Rales, No Rhonchi, No Wheezing Gastrointestinal/Abdominal: Soft, No Tenderness Extremity: Bilateral: Atraumatic, Normal Color And Temperature, Normal ROM Neurological/Psych: Oriented x3, Normal Speech Gait: Steady ED Course And Treatment O2 Sat by Pulse Oximetry: 95 (RA) Pulse Ox Interpretation: Normal Progress Note: Blood and urine collected and sent to the lab for analysis. Per social worker health services, patient does not need 1:1 observation because he is not acting suicidal. Disposition - Disposition - PA / CAPTAIN'S ASSISTANT / Resident Statement MD/DO has reviewed & agrees with the documentation as recorded. - Scribe Statement The provider has reviewed the documentation as recorded by the Scribe Wendy Tran All medical record entries made by the Scribe were at my direction and personally dictated by me. I have reviewed the chart and agree that the record accurately reflects my personal performance of the history, physical exam, medical decision making, and the department course for this patient. I have also personally directed, reviewed, and agree with the discharge instructions and disposition.
--- NOTE | 2018-03-22 11:53 | C.PDOC ---
History Of Present Illness 52 year old male presents to the ED complaining of depression associated with suicidal ideation. Denies having a suicidal plan or homicidal ideation. Denies any physical symptoms. Time Seen by Provider: 03/22/18 11:07 Chief Complaint (Nursing): Psychiatric Evaluation History Per: Patient History/Exam Limitations: no limitations Onset/Duration Of Symptoms: Days Current Symptoms Are (Timing): Still Present Suicide/Self Injury Attempted (Context): None Modifying Factor(s): None Associated Symptoms: Depression, Suicidal Thoughts. denies: Suicidal Plan Past Medical History Reviewed: Historical Data, Nursing Documentation, Vital Signs Vital Signs: Last Vital Signs Temp 98.1 F 03/22/18 10:46 Pulse 79 03/22/18 10:46 Resp 17 03/22/18 10:46 BP 149/88 03/22/18 10:46 Pulse Ox 95 03/22/18 10:46 - Medical History PMH: Anxiety, Asthma, Bronchitis, COPD, Depression, Diabetes, Fractures (Left foot fracture), Gastritis, HTN, Hypercholesterolemia Denies: Hepatitis, HIV, Chronic Kidney Disease, Seizures, Sexually Transmitted Disease Surgical History: No Surg Hx - [facility] Procedures APPLICATION OF SPLINT (07/21/14) GROUP PSYCHOTHERAPY (05/25/17) INDIV PSYCHOTHERAPY FOR SUBSTANCE ABUSE TREATMENT, SUPPORT (05/25/17) INDIV PSYCHOTHERAPY FOR SUBSTANCE ABUSE, PSYCHOEDUCATION (05/25/17) INDIVIDUAL PSYCHOTHERAPY, SUPPORTIVE (05/25/17) INJECT/INFUSE NEC (09/26/13) MEDICATION MANAGEMENT (05/25/17) MEDS MGMT FOR SUBSTANCE ABUSE TREATMENT, OTH REPL MED (05/25/17) NEBULIZER THERAPY (08/05/14) PHARMACOTHERAPY FOR SUBSTANCE ABUSE, OTH REPLACE MED (08/31/16) Family History: States: Diabetes - Social History Hx Alcohol Use: Yes Hx Substance Use: Yes - Immunization History Hx Tetanus Toxoid Vaccination: No Hx Influenza Vaccination: No Hx Pneumococcal Vaccination: No Review Of Systems Except As Marked, All Systems Reviewed And Found Negative. Constitutional: Negative for: Fever, Chills Psych: Positive for: Depression, Suicidal ideation Physical Exam - Physical Exam Additional Physical Exam Comments: Appears: Non-toxic, No Acute Distress Skin: Warm, Dry, No Rash Head: Normacephalic Eye(s): bilateral: Normal Inspection Neck: Supple Chest: Symmetrical Cardiovascular: Rhythm Regular Respiratory: Normal Breath Sounds, No Rales, No Rhonchi, No Wheezing Gastrointestinal/Abdominal: Soft, No Tenderness Extremity: Bilateral: Atraumatic, Normal Color And Temperature, Normal ROM Neurological/Psych: Oriented x3, Normal Speech Gait: Steady ED Course And Treatment - Laboratory Results Result Diagrams: 03/22/18 11:31 12 11:31 O2 Sat by Pulse Oximetry: 95 (RA) Pulse Ox Interpretation: Normal Progress Note: Blood and urine collected and sent to the lab for analysis. Per farm worker, patient does not need 1:1 observation because he is not acting suicidal. Patient was medically cleared and accepted to psychiatric floor by . Disposition - Disposition Disposition: HOSPITALIZED Disposition Time: 12:49 Condition: STABLE - Clinical Impression Clinical Impression: Major depression - PA / HUMAN RESOURCES COMPLIANCE MANAGER / Resident Statement MD/DO has reviewed & agrees with the documentation as recorded. - Scribe Statement The provider has reviewed the documentation as recorded by the Scribe Wendy Tran All medical record entries made by the Scribe were at my direction and personally dictated by me. I have reviewed the chart and agree that the record accurately reflects my personal performance of the history, physical exam, medical decision making, and the department course for this patient. I have also personally directed, reviewed, and agree with the discharge instructions and disposition. Decision To Admit - Pt Status Changed To: Hospital Disposition Of: Inpatient - Admit Certification Admit to Inpatient:: After my assessment, the patient will require hospitalization for at least two midnights. This is because of the severity of symptoms shown, intensity of services needed, and/or the medical risk in this patient being treated as an outpatient. - InPatient: Physician Admission Certification: I certify that this patient requires 2 or more midnights of care for the following reason:: will need more than 2 days of hospitalization - . Bed Request Type: Psychiatry Admitting Physician: Matt Amanda Patient Diagnosis: Major depression
[2018-03-22 12:04] LABS: ALBUMIN 3.9 g/dL (3.5-5.0); BLOOD UREA NITROGEN 14 mg/dL (9-20); CALCIUM 8.6 mg/dl (8.6-10.4); GFR NON-AFRICAN AMERICAN > 60
[2018-03-22 12:05] LABS: ALB/GLOB RATIO 1.4 (1.0-2.1); ALT/SGPT 41 U/L (21-72); AST/SGOT 23 U/L (17-59)
[2018-03-22 12:06] LABS: SQUAMOUS EPITHIAL < 1 /hpf (0-5); URINE BILIRUBIN NEGATIVE (NEGATIVE); URINE BLOOD NEGATIVE (NEGATIVE); URINE CLARITY Clear (Clear); URINE COLOR Yellow (YELLOW); URINE GLUCOSE (UA) NORMAL (Normal); URINE LEUKOCYTE ESTERASE NEG Leu/uL (Negative); URINE PROTEIN NEGATIVE (NEGATIVE)
[2018-03-22 12:27] LABS: BARBITURATES, UR NEGATIVE (NEGATIVE); BENZODIAZEPINES, UR NEGATIVE (NEGATIVE); OPIATES, UR NEGATIVE (NEGATIVE); PHENCYCLIDINE, UR NEGATIVE (NEGATIVE)
--- NOTE | 2018-03-22 13:32 | PCM.BM ---
<BethRosa Aurelia - Last Filed: 03/22/18 13:31> Treatment Plan Problems - Problems identified on initial assessmt Depression Date Initiated: 03/22/18 Time Initiated: 13:31 Assessment reference: NA Status: Active Suicidal ideation Date Initiated: 03/22/18 Time Initiated: 13:32 Assessment reference: NA Status: Monitor Treatment assets and liabiliti Patient Assests: cooperative, self-reliant, ADL independent, negotiates basic needs Patient Liabilities: financial problems, substance abuse - Milieu Protocol Maintain good personal hygiene: daily Encourage regular showers, daily Remind patient to perform daily oral care, daily Assist patient to perform ADL's Conduct patient checks and document Observation sheet: Q15 minutes Maintain personal safety: every shift Educate patient to report safety concerns to staff, every shift Monitor environment for contraband/sharps Medication safety: Monitor for expected outcome, potential side effects: every shift, Assess barriers to learning: every shift, Assess readiness for medication education: every shift <Shelby Hall - Last Filed: 03/25/18 11:54> Family Contact Family involvement: Patient does not wish Family/SO involvement Family contact: Patient declines to allow family contact at present - Goals for Treatment Patient goals for treatment: "I want to be referred to an outpatient program." Discharge/Continuing Care - Education Needs Education Needs: Patient Medication, Patient Diagnosis/Disease Process, Patient Coping Skills - Discharge Discharge Criteria: Free of Suicidal thoughts, Normal sleep pattern, Ability to care for self, No longer exhibiting s/s of withdrawal, Reduction of target symptoms Discharge to:: Home - Treatment Team Participation Discussed with Family/SO: No Was Patient/Family/SO present at Treatment Team Meeting: Yes
[2018-03-23] MEDS: Albuterol HFA 90 mcg/actuation (8 g) IH PRN ×3 (05:54→19:27)
--- NOTE | 2018-03-23 10:47 | PCM.PSYCH ---
Initial Psychiatric Evaluation - Initial Psychiatric Evaluation Type of Admission: Voluntary Legal Status: Capacity History of Present Illness and Precipitating Events: This is a 52 years old, single male who came to the ED with depressed mood and suicidal ideation. Security Intern is familiar with this patient. Patient has history of multiple inpatient psychiatric hospitalizations. He was last discharged from [facility] almost 9 months ago. As per the patient, he took medication for a while and started feeling better. Then he stopped taking the medications and relapse on cocaine. Patient reports of abusing increasing amount of cocaine. As per the patient, he has been clean and an active member in AA. Yesterday he abused more than $20 worth of cocaine, became increasingly depressed and suicidal ideation, so he came to the hospital to get help. Patient reports depressed mood, feelings of hopelessness and helplessness and worthlessness. He also reports poor sleep and poor appetite. He reports suicidal ideation without any plan. He denies any auditory or visual hallucinations or any paranoia. He also reports sometimes irritability and agitation. He denies any drinking or any other substance abuse. Past medical history Asthma, DM Current Medications: Active Medications Generic Name Dose Route Start Last Admin Trade Name Freq PRN Reason Stop Dose Admin Albuterol 1 puff 03/22/18 13:30 03/23/18 05:54 Ventolin Hfa 90 Mcg/Actuation (8 G) IH 1 puff Q4 PRN Administration asthma symptoms Hydroxyzine HCl 25 mg 03/22/18 13:31 Atarax PO Q6 PRN Agitation Influenza Virus Vaccine 60 mcg 03/25/18 10:00 Fluzone Quad [id number] IM 03/25/18 10:01 .ONCE ONE Metformin HCl 500 mg 03/22/18 18:00 03/23/18 08:01 Glucophage PO 500 mg BIDCC RADHA Administration Pneumococcal Polyvalent Vaccine 0.5 ml 03/24/18 14:21 Pneumovax 23 Vaccine IM 03/24/18 14:22 .ONCE ONE Trazodone HCl 50 mg 03/22/18 22:00 03/22/18 21:23 Desyrel PO 50 mg HS RADHA Administration Past Psychiatric History - Past Psychiatric History Previous Treatment History: Inpatient Pertinent Medical Hx (Current Medical&Sleep Prob, Allergies): Allergies Allergy/AdvReac Type Severity Reaction Status Date / Time FISH Allergy ANAPHYLAXIS Verified 03/22/18 10:50 Fish Containing Products Allergy ANAPHYLAXIS Verified 03/22/18 10:50 shellfish derived Allergy ANAPHYLAXIS Verified 03/22/18 10:50 seafood Allergy Severe ANAPHYLAXIS Uncoded 03/22/18 10:50 metFORMIN [glucOPHAGE] 500 mg PO BID tab 06/05/17 Albuterol Sulfate [Ventolin Hfa] 1 puff IH Q4 PRN #1 unit 02/06/18 Review of Systems - Review of Systems All systems: reviewed and no additional remarkable complaints except - Psychiatric Psychiatric: Anxiety, Irritability, Mood Swings, Suicidal Ideation Mental Status Examination - Personal Presentation Personal Presentation: Looks stated age - Affect Affect: Broad - Motor Activity Motor Activity: Calm - Reliability in Providing Information Reliability in Providing Information: Fair - Speech Speech: Organized - Mood Mood: Anxious - Formal Thought Process Formal Thought Process: Delusions, Paranoia - Obsessions/Compulsions Obsessions: No Compulsions: No - Cognitive Functions Orientation: Person, Place, Situation, Time Sensorium: Alert Attention/Concentration: Attentive Abstract Thinking: [place] Estimate of Intelligence: Below average Judgement: Imparied, as evidence by: Poor judgement, Imparied, as evidence by: Lack of insight into illness - Risk Risk: Suicidal, Diminished functioning - Limitations Limitations: Living alone DSM 5 DX - DSM 5 DSM 5 Diagnosis: Bipolar disorder depressed severe without psychotic features Cocaine use disorder severe - Recommended/Plan of Treatment Treatment Recommendations and Plan of Treatment: Bipolar disorder depressed severe without psychotic features Cocaine use disorder severe CBT Psychoeducation and supportive therapy group therapy Hydroxyzine 25 mg p.o. every 6 hours as needed Trazodone 50 mg p.o. nightly Neurontin 300 mg p.o. 3 times daily Seroquel 100 mg p.o. nightly - Smoking Cessation Smoking Cessation Initiated: No
[2018-03-24] MEDS: Albuterol HFA 90 mcg/actuation (8 g) IH PRN ×2 (01:28→09:12)
[2018-03-24 06:31] VITALS: O2SAT 96
--- NOTE | 2018-03-24 08:34 | PCM.PYCHPN ---
Psychiatric Progress Note - Psychiatric Progress Note Patient seen today, length of contact: 15 mnin Medication Change: Yes Medical Record Reviewed: Yes Mental Status Examination - Cognitive Function Orientation: Person, Place, Situation, Time Memory: Intact Attention: WNL Concentration: Poor Association: WNL Fund of Knowledge: Poor - Mood Mood: Anxious - Affect Affect: Broad - Formal Thought Process Formal Thought Process: Delusions, Paranoia - Suicidal Ideation Suicidal Ideation: No - Homicidal Ideation Homicidal Ideation: No Goal/Treatment Plan - Goal/Treatment Plan Need for Continued Stay: Severe functional impairment Progress Toward Problem(s) and Goals/Treatment Plan: Bipolar disorder depressed severe without psychotic features Cocaine use disorder severe CBT Psychoeducation and supportive therapy group therapy Hydroxyzine 25 mg p.o. every 6 hours as needed Trazodone 50 mg p.o. nightly Neurontin 300 mg p.o. 3 times daily Seroquel 100 mg p.o. nightly
[2018-03-24] MEDS ORDERED: Pneumococcal 23-Valent Vaccine IM ONE (14:21)
[2018-03-25] MEDS ORDERED: Influenza Vaccine 60 MCG/0.5 ML SYR (3 yr & up) IM ONE (10:00)
[2018-03-25] MEDS: Albuterol HFA 90 mcg/actuation (8 g) IH PRN ×2 (15:15→22:20)
[2018-03-26] MEDS: Albuterol HFA 90 mcg/actuation (8 g) IH PRN (11:50)
--- NOTE | 2018-03-26 21:09 | PCM.PYCHPN ---
Psychiatric Progress Note - Psychiatric Progress Note Patient seen today, length of contact: 15 mnin Patient Chief Complaint: I am feeling better. Can I be discharged today Problems Identified/Issues Discussed: Patient seen, chart reviewed, case discussed with the staff. Issues related to illness and treatment were discussed with the patient and staff. Calm and partially cooperative. Mood reported as okay. Affect appropriate. Reported compliant with treatment with no adverse effects. Awake, alert and oriented x3. Memory intact. Patient is feeling better but needs more time for stabilization. Aftercare discussed with the patient. Denied any delusions, auditory or visual hallucinations, no suicidal ideations or homicidal ideations at the time of evaluation. Medical Problems: Asthma Diabetes mellitus Diagnostic Results: Reviewed DSM 5 Symptoms Update: Some improvement with treatment. Medication Change: No Medical Record Reviewed: Yes Mental Status Examination - Cognitive Function Orientation: Person, Place, Situation, Time Memory: Intact Attention: WNL Concentration: WNL Association: WNL Fund of Knowledge: WN Decription of patient's judgement and insights: Fair - Mood Mood: Neutral - Affect Affect: Constricted - Speech Speech: Appropriate - Formal Thought Process Formal Thought Process: Loosening of associations - Suicidal Ideation Suicidal Ideation: No - Homicidal Ideation Homicidal Ideation: No Goal/Treatment Plan - Goal/Treatment Plan Need for Continued Stay: Remain at risks for inpatient hospitalization, Discharge may exacerbated symptoms, Severe functional impairment Progress Toward Problem(s) and Goals/Treatment Plan: Patient education. Supportive therapy. Continue treatment as before. Estimated Date of D/C: 03/29/18 - Smoking Cessation Smoking Cessation Initiated: No
[2018-03-27] MEDS: Albuterol HFA 90 mcg/actuation (8 g) IH PRN (06:24)
[2018-03-27 06:25] VITALS: BP 131/82; PULSE 67; RESP 18; TEMP 97.5
--- NOTE | 2018-03-27 09:55 | PCM.PYCHDC ---
Mental Status Examination - Mental Status Examination Orientation: Person, Place, Situation, Time Memory: Intact Mood: Neutral Affect: Constricted Speech: Soft Attention: WNL Concentration: WNL Association: WNL Fund of Knowledge: WNL Formal Thought Process: No Impairment Description of patient's judgement and insight: good, fair Psychotic Thoughts and Behaviors: denies any AVH Suicidal Ideation: No Current Homicidal Ideation?: No Discharge Summary - Discharge Note Reason for Hospitalization: This is a 52 years old, single male who came to the ED with depressed mood and suicidal ideation. Associate Professor Of Education is familiar with this patient. Patient has history of multiple inpatient psychiatric hospitalizations. He was last discharged from [facility] almost 9 months ago. As per the patient, he took medication for a while and started feeling better. Then he stopped taking the medications and relapse on cocaine. Patient reports of abusing increasing amount of cocaine. As per the patient, he has been clean and an active member in AA. Yesterday he abused more than $20 worth of cocaine, became increasingly depressed and suicidal ideation, so he came to the hospital to get help. Patient reports depressed mood, feelings of hopelessness and helplessness and worthlessness. He also reports poor sleep and poor appetite. He reports suicidal ideation without any plan. He denies any auditory or visual hallucinations or any paranoia. He also reports sometimes irritability and agitation. He denies any drinking or any other substance abuse. Consultations:: List each consultation separately and include: 1. Reason for request. 2. Findings. 3. Follow-up Summary of Hospital Course include:: 1. Description of specific treatment plan utilized for patients during their course of treatmen. 2. Summarize the time- course for resolution of acute symptoms and/or regressed behaviors. 3. Describe issues identified and worked on during hospitalization. 4. Describe medication utilized. 5. Describe medical problems identified and treated. 6. Reassessment of suicide risk Summary of Hospital Course: This is a 52 years old, single male who came to the ED with depressed mood and suicidal ideation. Associate Professor Of Education is familiar with this patient. Patient has history of multiple inpatient psychiatric hospitalizations. He was last discharged from [facility] almost 9 months ago. As per the patient, he took medication for a while and started feeling better. Then he stopped taking the medications and relapse on cocaine. Patient reports of abusing increasing amount of cocaine. As per the patient, he has been clean and an active member in AA. Yesterday he abused more than $20 worth of cocaine, became increasingly depressed and suicidal ideation, so he came to the hospital to get help. Patient reports depressed mood, feelings of hopelessness and helplessness and worthlessness. He also reports poor sleep and poor appetite. He reports suicidal ideation without any plan. He denies any auditory or visual hallucinations or any paranoia. He also reports sometimes irritability and agitation. He denies any drinking or any other substance abuse. Past medical history Asthma, DM - Final Diagnosis (DSM 5) Condition upon Discharge: STABLE DSM 5: Bipolar disorder depressed severe without psychotic features Cocaine use disorder severe Disposition: HOME/ ROUTINE Follow-up Treatment Plan: Bipolar disorder depressed severe without psychotic features Cocaine use disorder severe CBT Psychoeducation and supportive therapy group therapy Hydroxyzine 25 mg p.o. every 6 hours as needed Trazodone 50 mg p.o. nightly Neurontin 300 mg p.o. 3 times daily Seroquel 100 mg p.o. nightly Prescriptions/Medication Reconciliation: buPROPion [Wellbutrin] 100 mg PO DAILY #30 tab Gabapentin [Neurontin] 300 mg PO BID #60 cap QUEtiapine [SEROquel] 50 mg PO HS #30 tab
== END 2018-03-27 10:00 | disposition home or self-care (01) | DRG 430 ==
LOC: C.ER 10:43 → C.5E 12:48
PROVIDERS: ADMIT Psychiatry & Neurology Psychiatry; ATTEND Psychiatry & Neurology Psychiatry
DX: F31.9 Bipolar disorder, unspecified (principal); F14.20 Cocaine dependence, uncomplicated; J44.9 Chronic obstructive pulmonary disease, unspecified; R45.851 Suicidal ideations; I10 Essential (primary) hypertension; E11.9 Type 2 diabetes mellitus without complications; E78.00 Pure hypercholesterolemia, unspecified